=== PATIENT | female | born 2000 | race Caucasian/White ===

== ENCOUNTER 2023-07-20 22:31 | Emergency (ER) | payer MEDICAID, SELFPAY ==
--- NOTE | ~2023-07-20 | US_ITS ---
EXAMINATION: US OB <=14 wk fetus w TV DATE: 07/21/2023 02:13 INDICATION: Lower abdominal pain and cramping during first trimester . TECHNIQUE: Real-time pelvic ultrasound utilizing both a transvaginal and transabdominal probe was pe rformed. The interpreting radiologist was not present for the study. COMPARISON: None. FINDINGS: The uterus measures 8.1 x 4.5 x 4.6 cm. There is an intrauterine gestational sac with subtle interna l yolk sac but no discernible pole. The mean sac diameter measures 4 mm, which correlates with an estimated gestational age of 5 weeks and 1 days. The right ovary measures 4.1 x 1.8 x 4.7 cm. The left ovary measures 3.0 x 2.8 x 2.2 cm. Vascular lizzette w identified in both ovaries on color Doppler. There is a minimal amount of anechoic free fluid in th e cul-de-sac and along side the right ovary. IMPRESSION: 1. Single intrauterine gestational sac with yolk sac but no pole yet evident likely due to marian y stage of . 2. Gestational age by ultrasound based upon mean sac diameter of 5 weeks 1 day(s) +/- 3 day(s) with ultrasound estimated date of delivery (WILDER) of 03/21/2024. Reviewed, dictated and finalized at location A. IMPRESSION: 1. Single intrauterine gestational sac with yolk sac but no pole yet evid ent likely due to early stage of . 2. Gestational age by ultrasound based upon mean sac diameter of 5 weeks 1 day (s) +/- 3 day(s) with ultrasound estimated date of delivery (WILDER) of 03/21/2024 .
--- NOTE | ~2023-07-20 | XR_ITS ---
EXAMINATION: XR chest 1V portable DATE: 07/21/2023 05:09 INDICATION: Shortness of breath and fever TECHNIQUE: frontal view of the chest was obtained. COMPARISON: Chest radiograph dated 09/05/2007 FINDINGS: The lungs remain clear with no focal airspace opacities, pulmonary edema, pleural effusion or pneumot horax. The cardiomediastinal silhouette is normal. Visualized bones and soft tissues are unremarkable . IMPRESSION: 1. No acute cardiopulmonary disease. Reviewed, dictated and finalized at location A.
[2023-07-20 22:40] VITALS: BP 125/72; PULSE 127; RESP 16; TEMP 37; O2SAT 100
[2023-07-21] VITALS (27 sets, daily range): BP systolic 91–147; BP diastolic 39–108; PULSE 112–148; RESP 11–24; TEMP 38.8; O2SAT 97–100
[2023-07-21 00:30] LABS: Basophils Percent Auto 0.5 % (0.2-1.2); Hematocrit 39.4 % (37.0-47.0); Hemoglobin 13.3 g/dL (12.0-15.0); Immature Granulocyte Absolute 0.02 K/mm3 (0.00-0.031); Immature Granulocyte Percent A 0.5 % (0-0.5); Lymphocytes Absolute Auto 0.48 K/mm3 (0.9-3.2); Mean Corpuscular HGB Conc 33.8 g/dl (32-36); Mean Corpuscular Hemoglobin 25.8 pg (26-34); Mean Corpuscular Volume 76.5 fl (80-100); Mean Platelet Volume 10.6 fl (7.4-10.4); Monocytes Absolute Auto 0.9 K/mm3 (0.1-0.6); Monocytes Percent Auto 20.2 % (2.6-8.5); Neutrophils Percent Auto 67.8 % (45.5-73.1); Platelet Count Result 204 k/mm3 (150-375); Red Blood Count 5.15 M/mm3 (4.2-5.4); Red Cell Distribution Width 14.6 % (11.5-14.5); White Blood Count 4.4 K/mm3 (4.5-10.0)
[2023-07-21 00:35] LABS: Alanine Aminotransferase 19 U/L (6-35); Albumin Level 4.6 g/dL (3.5-5.1); Alkaline Phosphatase 73 U/L (38-126); Anion Gap 12 mmol/L (8-16); Aspartate Amino Transferase 31 U/L (14-36); Bilirubin,Total 0.5 mg/dL (0.2-1.3); Blood Urea Nitrogen 5 mg/dL (7-17); Calcium 9.6 mg/dL (8.4-10.2); Carbon Dioxide 19 mmol/L (22-30); Chloride 104 mmol/L (98-107); Estimated CRCL calculation 83 ml/min; Estimated Glomerular Filt Rate > 60; Glucose 106 mg/dL (65-110); Lipase 99 U/L (23-300); Potassium 3.4 mmol/L (3.4-5.0); Sodium 135 mmol/L (137-145)
--- NOTE | 2023-07-21 00:37 | ED.NAVMDI ---
HPI - Nausea/Vomiting/Diarrhea General Chief complaint: Nausea/Vomiting/Diarrhea <LEILA Tavares Last Filed: 07/21/23 14:08> Stated complaint: fever, N/V <LEILA Tavares Last Filed: 07/21/23 14:08> Time Seen by Provider: 07/21/23 00:20 <LEILA Tavares Last Filed: 07/21/23 14:08> Source: patient <LEILA Tavares Last Filed: 07/21/23 14:08> Mode of arrival: ambulatory <LEILA Tavares Last Filed: 07/21/23 14:08> Limitations: no limitations <LEILA Tavares Last Filed: 07/21/23 14:08> History of Present Illness HPI Narrative: Patient is a 22-year-old female who presents the ED with report of nausea and vomiting. Patient is and approximately 5 weeks gestation by last normal menstrual cycle around 06/13. Patient reports having persistent nausea and vomiting over the last 1.5 weeks. States she has been unable to keep down much food or drink. Reports decreased appetite. Reports intermittent lower abdominal cramping. Reports today she developed a fever up to 101.4 degree F, along with a cough. States overall she feels weak and fatigued. Patient able to denies vaginal bleeding, dysuria, hematuria. She is planning to follow up with [facility]. <LEILA Tavares Last Filed: 07/21/23 14:08> Related Data Allergies/Adverse reactions: Allergies Allergy/AdvReac Type Severity Reaction Status Date / Time No Known Allergies Allergy Unverified 03/16/17 12:44 <LEILA Tavares Last Filed: 07/21/23 14:08> Review of Systems Review of Systems: CONSTITUTIONAL: See HPI. CARDIOVASCULAR: Denies chest pain. RESPIRATORY: Reports cough. GASTROINTESTINAL: See HPI. GENITOURINARY: Denies vaginal bleeding, dysuria or hematuria. <LEILA Tavares Last Filed: 07/21/23 14:08> All systems reviewed & are unremarkable except as noted in HPI and below <Lucia Pagan PA-C - Last Filed: 07/21/23 14:08> Exam Narrative: GENERAL: Well appearing, well-nourished, non-toxic, in no acute distress. HEAD: Normocephalic, atraumatic. RESPIRATORY: Airway patent, respirations nonlabored. Clear to auscultation bilaterally, no rales, rhonchi, wheezing. CARDIOVASCULAR: Tachycardic with regular rhythm without murmurs, rubs, or gallops. ABDOMINAL: Soft, minimal tenderness to palpation throughout lower abdomen, nondistended. Normoactive BS. MUSCULOSKELETAL: Moves all extremities. No gross deformities. SKIN: Warm, dry, normal color. NEURO: A&O X3. Speech clear. Cranial nerves II-XII grossly intact. Steady gait. No ataxic movements. PSYCHIATRIC: Appropriate mood and affect. Normal interaction. <LEILA Tavares Last Filed: 07/21/23 14:08> Course COMPRESSOR STATION CHIEF ENGINEER/PA Physician Supervision For this patient encounter, I reviewed the COMPRESSOR STATION CHIEF ENGINEER or PA documentation, treatment plan, and medical decision making and had [id number] time with this patient. I performed all aspects of the MDM as documented. <Emmett Dallas MD - Last Filed: 07/21/23 06:33> Vital Signs Vital signs: Vital Signs Temperature 98.6 F 07/20/23 22:40 Pulse Rate 127 H 07/20/23 22:40 Respiratory Rate 16 07/20/23 22:40 Blood Pressure 125/72 07/20/23 22:40 Pulse Oximetry 100 07/20/23 22:40 Oxygen Delivery Room Air 07/20/23 22:40 Temperature 101.9 F H 07/21/23 04:36 Pulse Rate 116 H 07/21/23 06:31 Respiratory Rate 12 07/21/23 06:31 Blood Pressure 118/57 L 07/21/23 06:31 Pulse Oximetry 98 07/21/23 06:31 Oxygen Delivery Room Air 07/20/23 22:40 <Lucia Pagan PA-C - Last Filed: 07/21/23 14:08> Vital Signs Temperature 98.6 F 07/20/23 22:40 Pulse Rate 127 H 07/20/23 22:40 Respiratory Rate 16 07/20/23 22:40 Blood Pressure 125/72 07/20/23 22:40 Pulse Oximetry 100 07/20/23 22:40 Oxygen Delivery Room Air 07/20/23 22:40 Temperature
[2023-07-21 00:45] LABS: Appearance Urine Cloudy (Clear); Bacteria Urine 1+ /hpf; Bilirubin Urine Negative (Negative); Blood Urine Negative (Negative); Color Urine Dark Yellow (Yellow); Glucose Urine UA Negative (Negative); Ketones Urine 1+ mg/dL (Negative); Leukocyte Esterase Ur 1+ LEU/UL (Negative); Need Manual Microscopic Reviewed; Nitrate Urine Negative (Negative); Protein Urine Trace mg/dL (Negative); Specific Grav Ur 1.026 (1.001-1.035); Squamous Epithelial Cell Urine Moderate /hpf (Few); WBC Urine 0-5 /hpf (0-3)
[2023-07-21] MEDS: FAMOTIDINE 20 MG/2 ML VIAL IV PUSH (00:50)
[2023-07-21] MEDS: METOCLOPRAMIDE HCL INJ 10 MG/2 ML VIAL IV PUSH (00:50)
[2023-07-21] MEDS: SODIUM CHLORIDE 0.9% IV 1,000 ML 999 ML IV CONT ×2 (00:50→03:06)
[2023-07-21 00:57] LABS: Add Urine Microscopic? YES
[2023-07-21 01:18] LABS: Influenza A QL RT-PCR Negative (Negative); Influenza B QL RT-PCR Negative (Negative); RSV RNA, RT-PCR Negative (Negative); SARS-CoV-2 RNA PCR Negative (Negative)
--- NOTE | 2023-07-21 02:03 | PC.NURSE ---
Pt back from US.
--- NOTE | 2023-07-21 04:37 | ECG_ITS ---
Measurements Intervals [place] Rate: 140 P: 71 ME: 148 QRS: 87 QRSD: 101 T: 26 QT: 321 QTc: 490 Interpretive Statements SINUS TACHYCARDIA LOW QRS VOLTAGE IN PRECORDIAL LEADS INCOMPLETE RIGHT BUNDLE BRANCH BLOCK NONSPECIFIC ST & T-WAVE ABNORMALITY- INFERIOR LEADS BASELINE WANDER- II, III, V3-V6 ABNORMAL ECG NO PREVIOUS ECG AVAILABLE FOR COMPARISON Electronically Signed On 07-21-2023 7:58:19 CDT by Mango Mooney D.O.
[2023-07-21] MEDS: ACETAMINOPHEN ELIXIR 325 MG/10.15 ML UDC 650 MG PO (04:51)
[2023-07-21] MEDS: SODIUM CHLORIDE 0.9% IV 1,000 ML 150 ML IV CONT (05:23)
== END 2023-07-21 06:44 | disposition home or self-care (01) ==
PROVIDERS: Emergency Medicine; Physician Assistant; Emergency Provider Emergency Medicine
DX: O21.9 Vomiting of pregnancy, unspecified (principal); O99.511 Diseases of the respiratory system complicating pregnancy, first trimester; J06.9 Acute upper respiratory infection, unspecified; O26.891 Other specified pregnancy related conditions, first trimester; R82.71 Bacteriuria; Z3A.01 Less than 8 weeks gestation of pregnancy; R00.0 Tachycardia, unspecified; I45.10 Unspecified right bundle-branch block; R94.31 Abnormal electrocardiogram [ECG] [EKG]
CPT/HCPCS: 36415; 71045; 76801; 76817; 80053; 81025; 83690; 84702; 85025; 87086; 87637; 93005; 96361; 96374; 96375; 99284; A9270; J2765; J7030

== ENCOUNTER 2023-12-12 15:42 | Outpatient (CLI) | payer OTHER, SELFPAY ==
--- NOTE | 2023-12-12 16:32 | PC.NURSE ---
heart tones doppled at bedside. FHT 155 at 1605.
[2023-12-12 16:34] LABS: OBXCEM ROM Plus Negative
== END 2023-12-12 16:34 | disposition home or self-care (01) ==
LOC: ANHOBOP 15:53 → ANHOBPP 15:55
PROVIDERS: Visit Provider Advanced Practice Midwife
DX: O41.8X90 Other specified disorders of amniotic fluid and membranes, unspecified trimester, not applicable or unspecified (principal)
CPT/HCPCS: 84112; 99199

== ENCOUNTER 2024-01-20 00:58 | Observation (INO) | payer OTHER, SELFPAY ==
[2024-01-20] VITALS (20 sets, daily range): PULSE 92–129; O2SAT 98–100
--- NOTE | 2024-01-20 01:30 | OBADM ---
This patient, Dionne Arreaga, admitted to the OB room OB Post 117 for observation. Patient/family oriented to hospital policies and general routines including ID bracelet, bed and alarms, visiting hours, pain management, procedures, bathroom and other care routines, personal items, smoking policy, room service/diet, and visiting hours. Patient/Family are encouraged to report perceived risks to care and to ask questions if they do not understand what they are told or what they should do.
[2024-01-20 01:31] LABS: Basophils Percent Auto 0.4 % (0.2-1.2); Eosinophils Absolute Auto 0.1 K/mm3 (0-0.3); Eosinophils Percent Auto 1.3 % (0-4.4); Hematocrit 26.4 % (37.0-47.0); Hemoglobin 8.4 g/dL (12.0-15.0); Immature Granulocyte Absolute 0.08 K/mm3 (0.00-0.031); Lymphocytes Percent Auto 20.4 % (18.3-44.2); Mean Corpuscular HGB Conc 31.8 g/dl (32-36); Mean Corpuscular Hemoglobin 24.5 pg (26-34); Mean Platelet Volume 10.5 fl (7.4-10.4); Monocytes Absolute Auto 0.8 K/mm3 (0.1-0.6); Monocytes Percent Auto 9.8 % (2.6-8.5); Neutrophils Absolute Auto 5.3 K/mm3 (1.3-6.7); Neutrophils Percent Auto 67.1 % (45.5-73.1); Platelet Count Result 208 k/mm3 (150-375); Red Blood Count 3.43 M/mm3 (4.2-5.4); Red Cell Distribution Width 13.2 % (11.5-14.5); White Blood Count 7.8 K/mm3 (4.5-10.0)
--- NOTE | 2024-02-13 21:56 | PM.OBTRLD ---
OB - Triage/Final Diagnosis Visit Information Comments/Additional reasons for admission: I have assessed the risk for this patient, Dionne Arreaga, and determined that she would benefit from observation care. Evaluation Laboratory results: Laboratory Tests 01/20/24 01:14 WBC 7.8 RBC 3.43 L Hgb 8.4 L D Hct 26.4 L MCV 77.0 L MCH 24.5 L MCHC 31.8 L RDW 13.2 Plt Count 208 MPV 10.5 H Immature Gran % (Auto) 1.0 H Neut % (Auto) 67.1 Lymph % (Auto) 20.4 Labette % (Auto) 9.8 H Eos % (Auto) 1.3 Baso % (Auto) 0.4 Lymph # (Auto) 1.60 Labette # (Auto) 0.8 H Eos # (Auto) 0.1 Baso # (Auto) 0.0 Abs Immat Gran (auto) 0.08 H Absolute Neuts (auto) 5.3 Absolute Nucleated RBC 0.000 Nucleated RBC % 0.0 Final Diagnosis (1) Dyspnea: Code(s): R06.00 - Dyspnea, unspecified Status: Acute
== END 2024-01-20 03:32 | disposition home or self-care (01) ==
PROVIDERS: Admitting Provider Obstetrics & Gynecology; Visit Provider Obstetrics & Gynecology
DX: O26.893 Other specified pregnancy related conditions, third trimester (principal); R06.00 Dyspnea, unspecified; Z3A.30 30 weeks gestation of pregnancy
CPT/HCPCS: 36415; 85025; G0378; G0379

== ENCOUNTER 2024-03-18 18:31 | Inpatient (IN) | payer OTHER, SELFPAY ==
[2024-03-18] VITALS (55 sets, daily range): BP systolic 91–138; BP diastolic 46–89; PULSE 79–114; TEMP 37.2–37.4; O2SAT 98–100; BMI 31.2
[2024-03-18 19:10] LABS: Basophils Percent Auto 0.1 % (0.2-1.2); Eosinophils Percent Auto 0.4 % (0-4.4); Hematocrit 34.6 % (37.0-47.0); Hemoglobin 11.2 g/dL (12.0-15.0); Immature Granulocyte Absolute 0.05 K/mm3 (0.00-0.031); Immature Granulocyte Percent A 0.7 % (0-0.5); Lymphocytes Absolute Auto 1.37 K/mm3 (0.9-3.2); Mean Corpuscular HGB Conc 32.4 g/dl (32-36); Mean Corpuscular Volume 77.2 fl (80-100); Mean Platelet Volume 11.2 fl (7.4-10.4); Monocytes Percent Auto 13.2 % (2.6-8.5); Neutrophils Absolute Auto 4.8 K/mm3 (1.3-6.7); Neutrophils Percent Auto 66.6 % (45.5-73.1); Platelet Count Result 203 k/mm3 (150-375); Red Blood Count 4.48 M/mm3 (4.2-5.4); Red Cell Distribution Width 21.4 % (11.5-14.5); White Blood Count 7.2 K/mm3 (4.5-10.0)
[2024-03-18] MEDS: miSOPROStol 25 MCG TABLET 50 MCG BUCCAL (19:22)
[2024-03-18] MEDS: FAMOTIDINE 20 MG/2 ML VIAL IV PUSH (19:26)
[2024-03-18 19:36] LABS: Rapid Plasma Reagin Non-Reactive (NonReactive)
--- NOTE | 2024-03-18 19:51 | LDADM ---
This patient, Dionne Arreaga, was admitted to Labor/Delivery/Recovery 102 on 03/18/24 at 18:31. Plans for labor, pain management and were discussed with patient. Patient/family oriented to hospital policies and general routines including ID bracelet, bed and alarms, visiting hours, pain management, procedures, bathroom and other care routines, personal items, smoking policy, room service/diet and guest tray routines, infant security routines, and visiting hours. Patient/Family are encouraged to report perceived risks to care and to ask questions if they do not understand what they are told or what they should do. See OBIX for further documentation.
[2024-03-18 20:02] LABS: HIV 1/2 Ab P24 Ag Result Negative (Negative)
[2024-03-19] VITALS (174 sets, daily range): BP systolic 92–144; BP diastolic 37–104; PULSE 76–146; RESP 16–20; TEMP 36.4–37.3; O2SAT 97–100
[2024-03-19] MEDS: miSOPROStol 25 MCG TABLET 50 MCG BUCCAL ×2 (00:29→05:12)
[2024-03-19] MEDS: LACTATED RINGERS 500 ML 999 ML IV CONT (02:43)
--- NOTE | 2024-03-19 07:25 | WPDOBADMIT ---
Obstetrics - Admit Note Admission Note: record reviewed. No pertinent additions to the history and/or any subsequent changes in the physical findings that are not consistent with the expected course of the were found. Additions to the history and/or subsequent changes in the physical findings follow. IOL, elective, SVE 1.5 cm/80/-2, AROM large amount of clear, odorless fluid, anticipate vaginal delivery
[2024-03-19] MEDS: LACTATED RINGERS 1,000 ML 125 ML IV CONT (08:00)
[2024-03-19] MEDS: fentaNYL CITRATE INJ (*CRX) 100 MCG/2 ML VIAL 50 MCG IV PUSH (08:13)
[2024-03-19] MEDS: LORazepam (*CRX) 0.5 MG TABLET PO (10:22)
[2024-03-19] MEDS: OXYTOCIN 30 UNITS/NS 500 ML 30 UNITS/500 ML BAG IV CONT (11:43)
[2024-03-19] MEDS: FAMOTIDINE 20 MG/2 ML VIAL IV PUSH (13:12)
--- NOTE | 2024-03-19 15:10 | P.PCNOB_ITS ---
OB - Vaginal Delivery Note Procedure Delivery date: 03/19/24 Induction method: AROM, Per Misoprostol Protocol and Per Pitocin Protocol Route of delivery: Laceration Description: Perineal - 1st Degree Delivery repair: vicryl Specimen: No Quantitative Blood Loss (ml): 200 Anesthesia type: Epidural Disposition: Floor Complications: No immediate complications [place] Baby Date of : 03/19/24 Time of : 15:00 Gestational Age by Date: 39 Infant gender: Male presentation: vertex position: Left Occiput Anterior Placenta delivery description: Spontaneous Cord Vessel Description: 3 Vessels and Delayed Cord Clamping score one minute: 8 score five minutes: 9
[2024-03-19] MEDS: OXYTOCIN 30 UNITS/NS 500 ML 30 UNITS/500 ML BAG 125 UNITS IV CONT (15:29)
[2024-03-19] MEDS: IBUPROFEN 600 MG TABLET PO (16:56)
[2024-03-19] MEDS: WITCH HAZEL 40 PADS 1 PAD TOPICAL (16:56)
[2024-03-19] MEDS: BENZOCAINE 20% AER SPR (*SP) 56 GM CAN 1 SPRAY TOPICAL (16:56)
[2024-03-20] MEDS: IBUPROFEN 600 MG TABLET PO ×2 (04:30→10:16)
[2024-03-20] MEDS: ACETAMINOPHEN 325 MG TABLET 650 MG PO ×2 (04:30→10:16)
[2024-03-20 05:07] LABS: Hematocrit 33.9 % (37.0-47.0); Hemoglobin 10.9 g/dL (12.0-15.0)
--- NOTE | 2024-03-20 05:53 | PM.OBPNVD ---
OB - PN: Subj Subjective Date/time seen: 03/20/24 05:53 Interval history: pp day 1 doing well OB - PN: Obj Data Labs 03/20/24 03:59 Labs: Laboratory Results - last 24 hr 03/20/24 03:59 Hgb 10.9 L Hct 33.9 L OB - PN A/P Plan day: 1 Plan: routine care Time Spent With Patient Time: Total time spent is greater than 50% in coordination of care (as documented) at patient's floor/unit and/or counseling patient: Review of Systems Review of Systems: All systems reviewed & are unremarkable except as noted in HPI and below Exam Const: General: cooperative and healthy appearing Resp: Effort & Inspection: normal respiratory effort Cardio: Rate: regular rate Skin: General skin exam: normal color Neuro: General: patient oriented x3
[2024-03-20 07:10] VITALS: BP 112/72; PULSE 99; RESP 16; TEMP 36.2; O2SAT 99
[2024-03-20 07:15] VITALS: PULSE 99; RESP 16; O2SAT 99
--- NOTE | 2024-03-20 08:13 | PM.OBPNVD ---
OB - PN: Subj Subjective Date/time seen: 03/20/24 08:13 Interval history: pp day 1 doing well Patient comments: no complaints, pain well controlled and tolerating diet OB - PN: Obj Data Labs 03/20/24 03:59 Labs: Laboratory Results - last 24 hr 03/20/24 03:59 Hgb 10.9 L Hct 33.9 L OB - PN A/P Plan day: 2 Plan: routine care and discharge home Time Spent With Patient Time: Total time spent is greater than 50% in coordination of care (as documented) at patient's floor/unit and/or counseling patient: Exam Const: General: comfortable and no acute distress Resp: Effort & Inspection: normal respiratory effort Auscultation: no rales, no rhonchi and no wheezes Cardio: Rate: regular rate Heart sounds: no click, no murmurs and no rubs GI: GI Palp: Yes Soft to palpation and No Tenderness to palpation present (GI) Auscultation: normal bowel sounds Extrem: General: normal to inspection, no pedal edema and no calf tenderness
--- NOTE | 2024-03-20 08:16 | PM.OBDSVD ---
DS: Admitting Diagnosis Discharge Date March 20, 2024 Admitting Diagnosis term DS: Discharge Diagnosis Discharge Diagnosis (1) Post term , delivered: Code(s): O48.0 - Post-term Status: Acute OB - DS: Summary OB Procedures : None OB Procedures Intrapartum: Spontaneous Vag Delivery OB Procedures: : None Peripartum Data Laceration Description: Perineal - 1st Degree Time Spent with Patient Time attestation: Total time spent providing and/or coordinating discharge services: DS: Data Data Completed and Pending Labs on day of discharge: Labs from last 24 hours 03/20/24 03:59 Hgb 10.9 L Hct 33.9 L Discharge Plan Discharge Discharging Clinician: Gus Chun Patient Disposition: Home, Self-Care Activity: pelvic rest Diet: regular Patient Instructions: Antibiotic Form Stand Alone Forms: General Discharge Information Follow-up/Referrals: Gus Chun MD [Physician] - Discharge Medications: Continued mirtazapine 15 mg Tablet 15 mg PO HS Vitamin Tablet 1 tablet PO DAILY Date of admission: 03/18/24 18:31 Primary Care Provider: UNKNOWN,DOCTOR Admitting Provider: Gus Chun Attending physician on admission: Gus Chun Condition: Stable
[2024-03-20] MEDS: DOCUSATE SODIUM 100 MG CAPSULE PO (10:16)
[2024-03-20] MEDS: MULTIVIT/MIN/PREN/FOL AC/IRON TABLET 1 TAB PO (10:16)
[2024-03-20 12:36] VITALS: BP 115/70; PULSE 80; RESP 16; TEMP 36.6; O2SAT 100
--- NOTE | 2024-03-20 13:41 | WPDANLDPN2 ---
Anes-Prog Note L&D Date/Time: 03/20/24 13:41 Comfortable throughout: labor and delivery Neuraxial method: epidural Epidural/Spinal procedure site: clean & non-tender Neuro status: Neuro function grossly intact. Cardiovascular status: normal Respiratory status: normal Airway patency: baseline Mental status: baseline Post-Op hydration status: normal Vital Signs: Last Vital Signs Temp 36.6 C 03/20/24 12:36 Pulse 80 03/20/24 12:36 Resp 16 03/20/24 12:36 BP 115/70 03/20/24 12:36 Pulse Ox 100 03/20/24 12:36 O2 Del Method Room Air 03/20/24 07:15 Pain score (VAS): 3/10 Post-procedural complaints: none Patient feedback: Patient satisfied with anesthetic care.
[2024-03-20 18:25] VITALS: BP 124/82; PULSE 82; RESP 18; TEMP 36.4; O2SAT 97
[2024-03-21] MEDS: MULTIVIT/MIN/PREN/FOL AC/IRON TABLET 1 TAB PO (07:32)
[2024-03-21] MEDS: DOCUSATE SODIUM 100 MG CAPSULE PO (07:32)
[2024-03-21 07:36] VITALS: BP 127/85; PULSE 93; RESP 21; TEMP 36.2; O2SAT 97
--- NOTE | 2024-03-21 07:46 | PM.OBPNVD ---
OB - PN: Subj Subjective Date/time seen: 03/21/24 07:46 Interval history: pp day 2 doing well bottle feeding desires d/c home OB - PN: Obj Data Labs 03/20/24 03:59 OB - PN A/P Plan day: 2 Plan: routine care and discharge home Time Spent With Patient Time: Total time spent is greater than 50% in coordination of care (as documented) at patient's floor/unit and/or counseling patient: Review of Systems Review of Systems: All systems reviewed & are unremarkable except as noted in HPI and below Exam Const: General: cooperative, healthy appearing and comfortable Chest: Chest palpation & inspection: normal inspection of the chest Cardio: Rate: regular rate Skin: General skin exam: normal color Neuro: General: patient oriented x3
--- NOTE | 2024-03-21 07:47 | PM.OBDSVD ---
DS: Admitting Diagnosis Discharge Date 03/21/24 Admitting Diagnosis IOL DS: Discharge Diagnosis Discharge Diagnosis (1) Vaginal delivery: Code(s): O80 - Encounter for full-term uncomplicated delivery Status: Acute OB - DS: Summary OB Procedures : None OB Procedures Intrapartum: Spontaneous Vag Delivery OB Procedures: : None Peripartum Data Laceration Description: Perineal - 1st Degree Time Spent with Patient Time attestation: Total time spent providing and/or coordinating discharge services: Discharge Plan Discharge Attending physician on discharge: Gus Chun Discharging Clinician: Maryam Sam Patient Disposition: Home, Self-Care Activity: pelvic rest Diet: regular Patient Instructions: Antibiotic Form Stand Alone Forms: General Discharge Information Follow-up/Referrals: Gus Chun MD [Physician] - Discharge Medications: Continued mirtazapine 15 mg Tablet 15 mg PO HS Vitamin Tablet 1 tablet PO DAILY Date of admission: 03/18/24 18:31 Primary Care Provider: UNKNOWN,DOCTOR Admitting Provider: Gus Chun Attending physician on admission: Gus Chun Condition: Stable
--- NOTE | 2024-03-21 08:00 | PC.NURSE ---
0800 Per Primary RN, mother is not wanting to breast feed or use breast pump, she wishes to only bottle feed formula.
== END 2024-03-21 10:48 | disposition home or self-care (01) | DRG 560 ==
LOC: ANHLDR 18:36 → ANHOB2 03-19 18:23
PROVIDERS: Admitting Provider Obstetrics & Gynecology; Referring Provider Advanced Practice Midwife; Visit Provider Obstetrics & Gynecology
DX: O71.4 Obstetric high vaginal laceration alone (principal); Z3A.39 39 weeks gestation of pregnancy; Z37.0 Single live birth
CPT/HCPCS: 36415; 85014; 85018; 85025; 86592; 86703; 86850; 86900; 86901; A9270; G0432; J2590; J2795; J3010; J7120

== ENCOUNTER 2024-06-06 09:45 | Outpatient (RCR) | payer OTHER, SELFPAY ==
--- NOTE | 2024-05-16 11:53 | OPREHPOC ---
Outpatient Therapy Plan of Care This is a Multidisciplinary Plan of Care that may contain components documented by all disciplines (PT, OT, and ST.) PT Problem 1 PT Problem #1 Knowledge Deficit PT Goal 1 Goal / Goal Update 1. Patient will perform independent HEP Target Visit 3 PT Problem 2 PT Problem #2 Pain PT Goal 1 Goal / Goal Update 1. Patient will report pain no higher than 1/10 with normal activities including lifting her baby Target Visit 5 PT Problem 3 PT Problem #3 Impaired Strength PT Goal 1 Goal / Goal Update 1. Improve pelvic floor strength to 4/5 to reduce incontinence 2. Improve pelvic floor endurance to 10 seconds to reduce incontinence Target Visit 5 PT Problem 4 PT Problem #4 Impaired Functional ADLs PT Goal 1 Goal / Goal Update 1. Patient will report incontinence no more than 1 time a month Target Visit 5
--- NOTE | 2024-05-16 11:53 | PTOPEVAL1 ---
Assessment and note entered by Gayla Ervin DPT Evaluation Information Assessment Status Evaluation ICD-10 Condition Codes (PT) Weakness R53.1,Pelvic and perineal pain R10.2, Stress incontinence N39.3 Subjective Information Pt reports pelvic pain and is 2 months . Started noticing the pain about a month ago. Highest pain 6/10 and lowest 0/10. Will notice pain with sitting up and leaning forward like to continuous pickling line pickler helper baby from the bassinet, or with standing up from a chair. Voids about 10 times a day, will sometimes wake up 1 time at night. Can hold urge to void up to 15 minutes. Denies pain with urination. Urinary incontinence with activity 3-4 times a week, small volume and sometimes will need to change her underwear. BM most days, denies pain but does get some vaginal pressure. No fecal incontinence. Pt has had 1 vaginal delivery, slight tear and received 1 stitch. Previous PCOS diagnosis and history of anxiety. Some previous pain with intercourse, has not tried tampon use or intercourse since delivery. Patient goal: get rid of the pain Returns to MD in 1 year. Reported Pain Level Pain Score 0: Self Report Assessment PT Clinical Summary The patient is presenting to skilled therapy at 2 months with pelvic pain as well as urinary incontinence. She presents with decreased pelvic floor strength and endurance, decreased hip and abdominal strength, and a mild diastasis recti. These impairments are contributing to her pain with activities like picking up her baby from the bassinet and her incontinence. She will highly benefit from therapy to reduce pain and incontinence and restore full function. Plan of Care Interventions Electrical Stimulation,Hot Pack/Cold Pack,Manual Therapy,Neuro Re-education,Patient/Caregiver Education,Therapeutic Activities,Therapeutic Exercise PT Services Indicated Yes Treatment Frequency and 1 time a week for 5 visits Duration These treatments will address the objective and functional deficits as defined above. The patient will be advanced safely and appropriately in order for the patient to progress towards his/her prior level of function. Additional exercises will be introduced and as well as a comprehensive home exercise program upon discharge, if needed, ?to ensure carryover of functional gains achieved in the clinic. This treatment plan has been reviewed and agreement upon by the patient.
--- NOTE | 2024-05-30 10:24 | PCPTNOTE ---
Patient was no call/no show for appointment 05/30/24.
--- NOTE | 2024-06-13 09:49 | PCPTNOTE ---
Patient did not show up for appointment 06/13/24. Called patient to offer times to reschedule but voicemail not set up.
--- NOTE | 2024-06-27 10:58 | PTOPDC ---
Assessment and note entered by Gayla Ervin DPLeoncio Evaluation Information Assessment Status Discharge - Pt Not Present ICD-10 Condition Codes (PT) Weakness R53.1,Pelvic and perineal pain R10.2, Stress incontinence N39.3 Subjective Information - Assessment PT Clinical Summary Pt has not attended therapy since 06/06/24. Her case will be discharged this date. Plan of Care PT Services Indicated No
== END 2024-06-27 15:56 | disposition home or self-care (01) ==
LOC: ANHPT 09:45
PROVIDERS: Visit Provider Advanced Practice Midwife
DX: R10.2 Pelvic and perineal pain (principal)
CPT/HCPCS: 97110; 97112; 97140; 97161; 97530

== ENCOUNTER 2024-11-28 04:23 | Emergency (ER) | payer OTHER, SELFPAY ==
[2024-11-28] VITALS (19 sets, daily range): BP systolic 110–135; BP diastolic 60–82; PULSE 111–130; RESP 11–21; TEMP 37.5; O2SAT 97–100
--- OUTSIDE RECORDS SUMMARY | 2024-11-28 04:25 | XMS_ITS | Data Portability ---
Author Organization [facility], [facility] (patients home) Address [address] [place] [address] Assessment Encounter Date Assessment Date Assessment LastModified by Organization Details LastModified Time 12/18/2023 12/18/2023 Met with Dionne for follow up on mdd and anxiety, and how she is doing with remeron. GAD7-9 EPDS-16 total time 32 minutes. reviewing chart, meeting with patient [id number], sending out rx and documentation [email or web address] Not available 12/18/2023 13:08:35 01/08/2024 01/08/2024 Follow up with MDD and Anxiety PHQ9=12 GAD7=10 Not available 01/08/2024 19:36:49 03/12/2024 03/12/2024 Met with Dionne to follow up on depression/anxie ty EPDS 8 GAD7=3 [email or web address] Not available 03/12/2024 11:34:02 04/07/2024 04/07/2024 Met with Dionne today by telehealth to follow-up on her depression and anxiety since the of her baby. KELLY-7 = 7 mild EPDS = 8 [email or web address] Not available 04/07/2024 13:18:37 05/26/2024 05/26/2024 Met with Dionne today to follow up on her depression/anxie ty EPDS 7 GAD7=4 Not available 05/26/2024 13:37:09 Plan of Treatment Reminders Order Date Submit Date Provider Last Modified By Organization Details Last Modified Time Details Appointments None recorded. Lab None recorded. Referral None recorded. Procedures None recorded. Surgeries None recorded. Imaging None recorded. Medication Orders Lexapro 10 mg tablet 2024 025 [facility], [address], [place], [place], [id number], 5 13:29:13 Remeron 15 mg tablet 2023 024 [facility], [address], [place], [place], [id number], 4 13:24:17 Zoloft 25 mg tablet 2023 025 [facility], [address], [place], [place], [id number], 5 12:28:01 hydroxyzine HCl 25 mg tablet 2023 024 [facility], [address], [place], [place], [id number], 4 13:24:15 Remeron 15 mg tablet 2023 024 [facility], [address], [place], [place], [id number], 4 19:39:07 hydroxyzine HCl 25 mg tablet 2023 024 [facility], [address], [place], [place], [id number], 4 19:39:08 buspirone 5 mg tablet 2023 025 [facility], [address], [place], [place], [id number], 5 12:28:03 Patient TargetsNo targets recorded. Patient Instructions Encounter Date Encounter Id Patient Instructions Last Modified By Organization Details Last Modified Time 12/18/2023 [id number] learning about depression during [email or web address] Not available 12/18/2023 13:00:32 04/07/2024 [id number] depression after childbirth: care instructions [email or web address] Not available 04/07/2024 13:23:17 stress in parent s of infants: care instructions [email or web address] Not available 04/07/2024 13:23:18 Reason for Referral None Reported. Problems Name Problem SNOMED Code Status Onset Date Resolution Date Notes Provider Name and Address Organization Details Recorded Time Anxiety 73260982 Active 2023 Danisha Hughes CNM, [facility]- [address], [place], [address] 12:18:50 Moderate recurrent major depression 40582350 Active 2023 Danisha Hughes CNM, [facility] [address], [place], [address] 12:19:13 Generalize d anxiety disorder 44913795 Active 2023 Danisha Hughes CNM, [facility]- [address], [place], [address] 19:32:23 depression 390654938854 09 Active 2023 Danisha Hughes CNM, [facility] [address], [place], [address], [facility] 4 11:31:59 depression 90453699 Active 2023 Danisha Hughes CNM, [facility] [address], [place], [address] 18:51:32 Problem Notes None recorded. Procedures Surgical History Date Name Laterality Status Provider Name and Address Organization Details Recorded Time laparoscopy completed Ashley Sotelo [facility] I [facility] 12/05/2023 10:50:05 Imaging Results None recorded. Procedure Notes None recorded. Medical Equipment None Reported. Allergies Allergen ID Allergen Name Allergen Category Reaction Reaction Severity Criticality Documentation Date Start Date Code Code System Note Provider Name and Address Organization Details Recorded Time 942 Reglan medicatio n Not available Not available Not available 12/05/2023 9230 RxNorm Ashley Sotelo [place], [place] - [facility] 10:42:01 Medications Name Sig Start Date Stop Date Status Note LastModified by Organization Details LastModified Time dicloxacilli n 500 mg capsule 05/26 completed Not Available Not Available Not Available buspirone 5 mg tablet Take 1 tablet twice a day by oral route. 05/26 completed Not Available Not Available Not Available clindamycin HCl 300 mg capsule active Not Available Not Available Not Available fluconazole 150 mg tablet 05/26 completed Not Available Not Available Not Available metronidazol e 0.75 % (37.5 mg/5 gram) vaginal gel 05/26 completed Not Available Not Available Not Available metronidazol e 500 mg tablet 05/26 completed Not Available Not Available Not Available lorazepam 0.5 mg tablet active Not Available Not Available Not Available sertraline 25 mg tablet Take 1 tablet every day by oral route. 05/26 completed Not Available Not Available Not Available hydroxyzine HCl 25 mg tablet Take 1 tablet 3 times a day by oral route as needed, for anxiety and sleep. active Not Available Not Available No t Available mirtazapine 15 mg tablet Take 1 tablet every day by oral route. active Not Available Not Available No t Available escitalopram 20 mg tablet Take 1 tablet every day by oral route. active Not Available Not Available No t Available Lexapro 10 mg tablet Take 1 tablet every day by oral route. 2024 active Not Available Not Available Not Avai lable escitalopram 5 mg tablet Take 1 tablet every day by oral route. 05/26 completed Not Available Not Available Not Available nitrofuranto in monohydrate/ macrocrystal s 100 mg capsule TAKE 1 CAPSULE BY MOUTH EVERY 12 HOURS WITH FOOD/NAHOMY L 12/04 completed Not Available Not Available Not Available Ativan active Not Available Not Availa ble Not Available clonazepam active Not Available Not Av ailable Not Available Vitals Date Recorded Body height Body mass index (BMI) Body weight Heart rate Systolic And Diastolic Provider Name and Address Organization Details Last Updated DateTime 05/26/2024 154.94 cm 28.5 kg/m2 47683.45 g 75 /min 129/89 mm[Hg] Ashley Sotelo [facility] 05/26/2024 12:26:36 Date Recorded Body height Body mass index (BMI) Body weight Systolic And Diastolic Provider Name and Address Organization Details Last Updated DateTime 12/18/2023 154.94 cm 24.8 kg/m2 22148.6 g 114/74 mm[Hg] Ashley Sotelo [facility] 12/18/2023 11:30:22 Date Recorded Body height Body mass index (BMI) Body weight Systolic And Diastolic Provider Name and Address Organization Details Last Updated DateTime 01/08/2024 154.94 cm 26.3 kg/m2 01492.34 g 114/77 mm[Hg] Ashley [facility] 01/08/2024 15:57:24 Date Recorded Body height Body mass index (BMI) Body weight Systolic And Diastolic Provider Name and Address Organization Details Last Updated DateTime 03/12/2024 154.94 cm 31.6 kg/m2 25967.93 g 124/84 mm[Hg] Ashley [facility] 03/12/2024 10:43:09 Social History Question Answer Notes LastModified by Organizat ion Details LastModified Time Tobacco Smoking Status Never Smoker Ashley Sotelo [facility] 12/05/2023 10:48:36 What Is Your Level Of Caffeine Consumption? Occasional [email or web address] Information not available 12/05/2023 Which Illicit Or Recreational Drugs Have You Used? MJ [email or web address] Information not available 12/05/2023 Are There Any Guns Present In Your Home? No [email or web address] Information not available 12/05/2023 Do You Feel Safe In Your Home? Yes [email or web address] Information not available 12/05/2023 Sex: Unknown Functional Status Question Answer Note LastModified by Organizat ion Details LastModified Time Do you use any illicit or recreational drugs? Yes Information not available 12/05/2023 Do you or have you ever used any other forms of tobacco or nicotine? No [email or web address] Information not available 12/05/2023 What is your level of alcohol consumption? None [email or web address] Information not available 12/05/2023 What is your exercise level? None [email or web address] Information not available 12/05/2023 Mental Status Question Answer Note LastModified by Organization D etails LastModified Time Do you feel stressed (tense, restless, nervous, or anxious, or unable to sleep at night)? [id number] [email or web address] Information not available 12/05/2023 Family History Relationship Description Onset Age of this Age Resolved Age Notes LastModified by Organization Details LastModified Time Father Depressive disorder Not available 2023 10:45:29 Father Anxiety disorder [email or web address] Not available 2023 10:45:43 Maternal Grandfather Schizophreni a [email or web address] Not available 2023 10:45:52 Mother Depressive disorder [email or web address] Not available 2023 10:46:08 Mother Anxiety disorder Not available 2023 10:46:17 Medical History Condition Response Anxiety Disorder Y Other Y Depression Y Gynecological History Statement/Question Response Menses Monthly N HPV Vaccine Y Current Control Method None Date of LMP 06/15/2023 Obstetrics History GPAL:G 1 P 1 0 0 0 Type Value Full Term 1 Total 1 Past Encounters Encounter ID Performer Location Encounter Start Date Encounter Closed Date Diagnosis/Indication Diagnosis SNOMED-CT Code Diagnosis ICD10 Code Diagnosis Note [id number] Danisha Hughes CNM, [facility] Main Office [address] [place] [address] 12/05/2023 10:37:02 12/05/2023 17:25:37 Anxiety 11203438 F41.1 stop Lexapro. Start remeron 15mg daily.refe ral for therapy with Ce alhlin givenretur n to office 1 week for follow jayleen quiroz plan of care with Tiago stover with plan of care Moderate r ecurrent major depression 87176431 F33.1 stop Lexapro. Start remeron 15mg dailyrefer al for therapy with Ce Ahlin givenretur n to office 1 week for follow-up [id number] Danisha Hughes CNM, [facility] Main Office [address] [place] [address] 12/18/2023 11:26:53 12/18/2023 13:26:22 Moderate recurrent major depression 85985205 F33.1 stop Lexapro. Start remeron 15mg dailyrefer al for therapy with Ce Ahlin givenretur n to office 1 week for follow-up Moderate r ecurrent major depression 37649731 F33.1 continue Remeron 15mg dailyencou raged therapy-re feral given last visit for Ce Ahlinretur n to office 2 week for follow-up Anxiety 35648154 F41.1 continue remeron 15mg dailystart Buspar 5mg twice a day. may take mid-day dose if neededretu rn to office 2 week for follow up [id number] Danisha Hughes CNM, [facility] Main Office [address] [place] [address] 01/08/2024 15:54:39 01/09/2024 12:36:11 Moderate recurrent major depression 43522788 F33.1 Continue remeron 15mg dailyrefer al for therapy with Ce Ahlin given - encouraged return to office 2 months Anxiety 52886305 F41.1 continue remeron 15mg dailyhydro xyzine 12.5mg (1/2 tab)- 25mg (1 tab) as needed upto 3 times a day for anxiety, may also help with sleepretur n to office 2 months for follow up [id number] Danisha Hughes CNM, [facility] Main Office [address] [place] [address] 03/12/2024 10:39:28 03/12/2024 18:01:32 Anxiety 63043285 F41.1 continue remeron 15mg dailyhydro xyzine 12.5mg (1/2 tab)- 25mg (1 tab) as needed upto 3 times a day for anxiety, may also help with sleepretur n to office at 2 weeks - appt scheduled. depression 049 6801636 2106 F32.89 Continue remeron 15mg dailyrefer al for therapy with Ce Ahlin given - encouraged return to office 2 weeks - sooner if neededdisc ussed improtance of getting sleep after baby gets hare, using family members to help so she can get appropriat e rest. [id number] Danisha Hughes CNM, [facility] Main Office [address] [facility] [place] [address] 04/07/2024 12:09:08 04/08/2024 10:49:20 depression 18406079 F53.0 Continue Remeron 15 mg at at bedtimeSta rt sertraline 25 mg at bedtimeRec ommend therapy with CE Ahlin Anxiety 65033184 F41.1 continue remeron 15mg dailyhydro xyzine 12.5mg (1/2 tab)- 25mg (1 tab) as needed upto 3 times a day for anxiety, may also help with sleepretur n to office in 1 month - appt scheduled. [id number] Danisha Hughes CNM, [facility] Main Office [address] [facility] [place] [address] 05/26/2024 12:23:55 05/27/2024 09:41:04 depression 89589851 F53.0 Continue Remeron 15 mg at at bedtimeinc rease lexapro to 10mg dailyencou rage therapy with CE Ahlin Anxiety 51839500 F41.1 continue remeron 15mg dailyhydro xyzine 12.5mg (1/2 tab)- 25mg (1 tab) as needed upto 3 times a day for anxiety, may also help with sleepincre ase lexapro to 10 mg dailyretur n to office in 1 month - appt scheduled. depression 611 9891091 2109 F32.89 Continue remeron 15mg dailyrefer al for therapy with Ce Ahlin given - encouraged return to office 4 weeks Health Concerns Section Related Observation LastModified by Organization Detai ls LastModified Time None Recorded Concern Status LastModified by Organization Details LastModified Time None Recorded Advance Directives Directive None Recorded Payers Insurance Date Sequence Insurance Name Policy Number Policy Mendez Covered Member ID Mendez Member ID Guarantor Name 06/20/2024 1 [facility] ON OR AFTER 11/04/20 (MEDICAID REPLACEMENT - HMO) Dionne Arreaga [id number] Dionne Arreaga 03/10/2024 1 [place] [employer] Dionne Arreaga [id number] Dionne Arreaga 03/10/2024 1 [facility] - DOS ON OR AFTER 20 (MEDICAID REPLACEMENT - HMO) Dionne Arreaga [id number] Dionne Arreaga Notes Date Note Type Note Provider Name and Address Organization Details Recorded Time 12/18/2023 text/html Met with Dionne for follow-up with depression and anxiety. 26 weeks . Dionne is doing much better since switching from Lexapro to Remeron. Was experiencing some crazy dreams when she started the Remeron, but that is improved. States her mood to be better still having some anxiety. . denies feelings of worthlessness, helplessness, guilt. Feelings of hopelessness have improved. Appetite is improving. Sleep is better sleeping 10 to 11 hours a night. No difficulty falling asleep or staying asleep. Denies any SI or HI. Denies any auditory hallucinations or visual hallucinations. Danisha Hughes CNM, HNP-BC [address], [place], [address], [facility] 12/18/2023 13:25:56 01/08/2024 text/html Met with Dionne to follow-up on her MDD and anxiety. Dionne is 29 weeks , is doing well. Dionne is doing well on Remeron 15 mg daily. Stop taking BuSpar due to making her feel queasy. She states her mood to be okay. Denies any feelings of worthlessness, hopelessness, helplessness. Sleep is better, no difficulty falling asleep or staying asleep. Denies any SI or HI. Denies any auditory hallucinations or visual hallucinations. Danisha Hughes CNM, PMHNP-BC [address], [place], [address], [facility] 01/08/2024 19:43:09 03/12/2024 text/html Met with Dionne this am. Dionne is 38 weeks . schedued for induction of labor next sunday. Anxious about being induced. States her mood to be fine, anxious about having baby. Denies any feeling of worthlessness, helplessness or hopelessness. Appetite is good. Sleep is better, no problem, falling asleep or staying asleep. getting 10 hours of sleep a night. denies any SI or Hi. Denies any AH or VH. Danisha Hughes CNM, [facility]- [address], [place], [address], [facility] 03/12/2024 11:44:55 04/07/2024 text/html Met with Dionne today by telehealth. Dionne is following up after the of her son, Joey Finney. Sharath is 3 weeks old. Dionne states her process was good, delivered vaginally. Baby is bottlefeeding. Bonding well. Dionne does state her mood to be so overwhelmed and stressed out. States Sharath has been fussy the last few days. Denies any feelings of worthlessness, hopelessness, or helplessness. Anxiety just is very high. Appetite is good. Sleep is decent, I have lots of help. Getting 7 hours of sleep at night does nap during the day. Denies any SI or HI. Denies any auditory hallucinations or visual hallucinations. The states have been on Zoloft and Remeron in the past and are doing well with the combination. Danisha Hughes CNM, [facility]- [address], [place], [address], [facility] 04/07/2024 13:35:23 05/26/2024 text/html Met with Dionne today to follow-up on her depression and anxiety. She is 12 weeks . Bonding well with baby. Bottle feeding. States she is feeling good. Feeling like the Lexapro is helping. Denies feelings of worthlessness, hopelessness, or helplessness. Denies isolating or self. Sleep has been okay, getting up with the baby 2-3 times a night. Getting a total of 9 hours of sleep at night. Denies any SI or HI. Denies any auditory hallucinations or visual hallucinations. Has not started therapy. Interested in increasing her Lexapro to 10 mg, due to still having some increased anxiety at times. [facility] [address], [place], [address], [place] [facility] 05/26/2024 13:42:39 OBGyn Episode No OBEpisode recorded.
--- OUTSIDE RECORDS SUMMARY | 2024-11-28 04:25 | XMS_ITS | Clinical Summary ---
Author Organization [facility] Address [address] [address] Care Team Providers Care Social Sciences Chair Name Role Phone Deepak Jarquin MD Primary Care Provider [phone] Source Comments [facility],non-owned Affiliates and Associated Physician Practices is amultiple site organization consisting of ambulatory clinics and hospital sitesin [place], [place], [place] and [place]. This disclosure is being madepursuant to the Care Everywhere program and may not contain all information available regarding this patient. Last updated 18.[facility] wutabout Allergies No known active allergies Medications * Be aware that medications may not be up to date on this document. Alwaysverify current medications with the patient. ondansetron, disintegrating, (ZOFRAN ODT) 4 MG tablet Take 1 (one) tablet by mouth every 6 hours as needed for Nausea/Vomiti ng Allow tablet to dissolve on the tongue 12 tablet 06/06/2021 Active Social History Tobacco Use Types Packs/Day Years Used Date Smoking Tobacco: Never Passive Smoke Exposure: Yes Smokeless Tobacco: Never Tobacco Cessation:Counseling Given: Not Answered Alcohol Use Standard Drinks/Week Comments No 0 (1 standard drink = 0.6 oz pur e alcohol) AUDIT-C Answer Date Recorded Q1: How often do you have a drink containing alcohol? Never 10/24/2022 Q2: How many drinks containi ng alcohol do you have on a typical day when you are drinking? Patient does not drink Q3: How often do you have si x or more drinks on one occasion? Never 10/24/2022 Comments No Sex and Gender Information Value Date Recorded Sex Assigned at Not on file Legal Sex Female 6:36 AM [employer] Gender Identity Not on file Sexual Orientation Not on file Last Filed Vital Signs Vital Sign Reading Time Taken Comments Blood Pressure 132/84 10/24/2022 4:20 PM CDT Pulse 88 10/24/2022 4:20 PM CDT Temperature 36.3 C (97.3 F) 10/24/2022 4:20 PM CDT Respiratory Rate 16 10/24/2022 4:20 PM CDT Oxygen Saturation 100% 10/24/2022 4:20 PM CDT Inhaled Oxygen Concentration - - Weight 56.1 kg (123 lb 10.9 oz) 10/24/2022 4:20 PM CDT Height 156 cm (5' 1.42) 10/24/2022 4:20 PM CDT Body Mass Index 23.05 10/24/2022 4:20 PM CDT Plan of Treatment Health Maintenance Due Date Last Done Comments HIV SCREENING 2016 HPV VACCINE (1 - 3-dose series) 2016 MENINGOCOCCAL (Group B) VACC INE SHARED DECISION-MAKING (1 of 2 - Standard) 2017 HEPATITIS C SCREENING 07/19/2019 DTAP/TDAP/TD VACCINES (1 - Tdap) 2020 HEPATITIS B VACCINE (1 of 3 - 19+ 3-dose series) 2020 CHLAMYDIA/GONORRHEA SCREENING 10/31/2020 11/01/2019 PAP SMEAR 2022 COVID-19 VACCINE (1 - 2023-2 5 season) 2024 DEPRESSION SCREENING 05/07/2024 INFLUENZA VACCINE (#1) 2025 ZOSTER VACCINE (1 of 2) 07/24/2051 HIB VACCINE Aged Out No longer eligi ble based on patient's age to complete this topic MENINGOCOCCAL GROUPS A/C/Y/W VACCINE Aged Out No longer eligible b ased on patient's age to complete this topic PNEUMOCOCCAL VACCINE Aged Out No long er eligible based on patient's age to complete this topic Procedures Procedure Name Priority Date/Time Associated Diagnosis Comments CHLAMYDIA + GC AMPLIFIED PROBE STAT 11/01/2019 8:54 PM CDT from Last 3 Months or Most Recently Relevant to Health Maintenance Results * CHLAMYDIA + GC AMPLIFIED PROBE (STL) (11/01/2019 8:54 PM CDT) Chlamydia Amplified Probe Negative Negative 11/02/2019 11:13 AM CDT [facility] GC Amplified Probe Negative Negative 11/02/2019 11:13 AM CDT [facility] Microbiology URINE / Unknown Collection / Unknown 11/01/2019 8:54 PM CDT 11/01/2019 9:08 PM CDT Narrative [facility] - 11/02/2019 11:13 AM CDT Results based on detection/no detection of ribosomal RNA by amplified method. Rafael Cummings MD LAB - MICROBIOLOGY ORDERABLES Fi nal Result [facility] [address] [place] [address], [facility] [phone] from Last 3 Months or Most Recently Relevant to Health Maintenance Insurance [facility] Care Teams Social Sciences Chair Relationship Specialty [place] [address] [place] [phone] PCP - General Internal Medicine 05/07/21
--- OUTSIDE RECORDS SUMMARY | 2024-11-28 04:26 | XMS_ITS | Data Portability ---
Author Organization [facility] Address [address] [place] [address] Care Team Providers Care Reimbursement Liaison Name Role Phone BAMBI SAM Primary Care Provider [phone] Assessment Encounter Date Assessment Date Assessment LastModified by Organization Details LastModified Time 02/27/2024 02/27/2024 Patient is _36__weeks . Discussed plan. [email or web address] Not available 02/27/2024 14:03:20 03/07/2024 03/07/2024 Patient is _37__weeks . Discussed plan. [email or web address] Not available 03/07/2024 10:15:01 03/12/2024 03/12/2024 Patient is _38__weeks . Discussed plan. [email or web address] Not available 03/12/2024 10:58:11 04/16/2024 04/16/2024 plan referral for pelvic floor pt, ok to use metrogel since helping sxs f/u with psychiatry f/u here 6 mo wwe or sooner if needs to [email or web address] Not available 04/16/2024 18:11:11 Plan of Treatment Reminders Order Date Submit Date Provider Last Modified By Organization Details Last Modified Time Details Appointments IRREGULAR BLEEDING 2024 11:30A M CHAZ VALLES NP Not available Not available Not available Lab None recorded. Referral None recorded. Procedures None recorded. Surgeries None recorded. Imaging None recorded. Medication Orders Metrogel Vaginal 0.75 % (37.5 mg/5 gram) 2023 024 [facility], [address] [place] [address] , [address], [place], [place], [id number], 04/16/2024 18:10:17 metronida zole 500 mg tablet 2023 024 [facility], [address] [place] [address] , [address], [place], [place], [id number], 04/11/2024 09:41:29 Patient TargetsNo targets recorded. Patient InstructionsNo instructions recorded. Reason for Referral None Reported. Results Created Date Observation Date Name Description Value Unit Range Abnormal Flag Note LastModifiedBy Organization Detail LastModifiedTime 02/27/20 24 02/27/2024 CULTU RE: GROUP B STREP SCREE N, REFLE X SUSCE PTIBI LITY result report SEE RESULT S BELOW Test: Cultu re: Group B Strep , Refle x Susce ptibi lity ([facility]/ [facility] ) Speci men Sourc e: Vagin a/Rec beckie Speci men Type: Vagin al/Re ctal Speci men Date: 02/26 1552 Resul t Date: 03/01 1426 Resul t Statu s: Final resul t Abnor mal: No Resul ting Lab: [facility] [address] [facility] [address] Tel: CULTU RE ----- ----- ----- --- No Group B strep isola faheem at 2 days (josias ctive broth enhan cemen t) Not Available [facility] (Lab) [address], [place], [address], 03/01/2024 15:29:13 01/31/2002/01/2024 , cody patterson w-up No observ ation record ed. [email or web address] [facility] [address], [place], [address], 02/01/2024 13:14:02 01/31/20 24 01/31/2024 US, obste tric, follo w-up No observ ation record ed. ISABEL Morelia [address], [place], [address], 02/04/2024 15:11:49 Result Notes None recorded. Problems Name Problem SNOMED Code Status Onset Date Resolution Date Notes Provider Name and Address Organization Details Recorded Time Social fear 036787490 Completed Anxiety- ok to restart lexapro Bambi Sam CNM [address], [place], [address], [facility] 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 4 17:13:44 Anemia 922802973 Completed Bambi Sam CNM [address], [place], [address], [facility] 4 16:11:56 Pregnanc y 41360769 Completed 202303/21/2024 Susan Rahman [facility], [facility] 4 16:13:09 Mixed anxiety and depressi ve disorder 203778945 Active 2023 Lurdes robins, [facility] 4 12:29:30 Anxiety 31636036 Completed 2023 Tu Saul appt on 12/04 started on mirtazap ine Bambi Sam CNM [address], [place], [address], [facility] 4 09:12:14 Problem Notes None recorded. Procedures Surgical History Date Name Laterality Status Provider Name and Address Organization Details Recorded Time 0 Laparoscopy completed Renée Slaughter [facility] 08/02/2023 14:42:16 Imaging Results None recorded. Procedure Notes None recorded. Medical Equipment None Reported. Allergies Allergen ID Allergen Name Allergen Category Reaction Reaction Severity Criticality Documentation Date Start Date Code Code System Note Provider Name and Address Organization Details Recorded Time 96061 Reglan medicatio n tachycard ia severe Not available 11/28/2023 9230 RxNorm Lurdes Demetrius robins, [facility] 10:17:55 Medications Name Sig Start Date Stop Date Status Note LastModified by Organization Details LastModified Time dicloxacill in 500 mg capsule Take 1 capsule every 6 hours by oral route. 04/11 completed Not Available Not Available Not Available buspirone 5 mg tablet 01/15 completed Not Available Not Available Not Available Protonix 40 mg tablet,hermes yed release Take 1 tablet every day by oral route. 2023 active Not Available Not Available Not Avai lable clindamycin HCl 300 mg capsule Take 1 capsule twice a day by oral route for 7 days. 01/01 completed Not Available Not Available Not Available fluconazole 150 mg tablet Take 1 tablet every day by oral route as directed for 1 day. 04/11 completed Not Available Not Available Not Available metronidazo le 0.75 % (37.5 mg/5 gram) vaginal gel Insert 1 applicato rful every day by vaginal route for 5 days. active Not Available Not Available No t Available terconazole 0.8 % vaginal cream Insert 1 applicato rful every day by vaginal route at bedtime for 3 days. 09/18 completed Not Available Not Available Not Available metronidazo le 500 mg tablet Take 1 tablet twice a day by oral route. active Not Available Not Available No t Available ondansetron HCl 4 mg/5 mL oral solution Take 5 mL every 6 hours by oral route as needed. 11/06 completed Not Available Not Available Not Available lorazepam 0.5 mg tablet 1 tablet every 8 hours prn only for anxiety active Not Available Not Available No t Available Compazine 5 mg tablet Take 1 tablet every 4-6 hours as needed for nausea 09/18 completed Not Available Not Available Not Available cephalexin 500 mg capsule Take 1 capsule every 12 hours by oral route. 12/11 completed Not Available Not Available Not Available promethazin e 25 mg tablet Take 1 tablet every 4 hours by oral route. 09/18 completed Not Available Not Available Not Available sertraline 25 mg tablet 04/11 completed Not Available Not Available Not Available hydroxyzine HCl 25 mg tablet Take 1 tablet 3 times a day by oral route as needed. active Not Available Not Available No t Available mirtazapine 15 mg tablet active Not Available Not Available Not Available scopolamine 1 mg over 3 days transdermal patch Apply 1 patch by transderm al route for 3 days. 11/06 completed Not Available Not Available Not Available ondansetron 4 mg disintegrat ing tablet Place 1 tablet every 8 hours by transling ual route. 11/06 completed Not Available Not Available Not Available Lexapro 10 mg tablet Take 1 tablet every day by oral route. 11/06 completed Not Available Not Available Not Available escitalopra m 5 mg tablet active Not Available Not Available Not Available nitrofurant oin monohydrate /macrocryst als 100 mg capsule TAKE 1 CAPSULE BY MOUTH EVERY 12 HOURS WITH FOOD/MEAL 08/01 completed Not Available Not Available Not Available Zofran (base) 11/06 completed Not Available Not Available Not Available Vitals Date Recorded Body height Body mass index (BMI) Body weight Systolic And Diastolic Provider Name and Address Organization Details Last Updated DateTime 02/27/2024 154.94 cm 29.5 kg/m2 18715.41 g 122/79 mm[Hg] Lurdes oRmo [facility] 02/27/2024 12:47:10 Date Recorded Body height Body mass index (BMI) Body weight Systolic And Diastolic Provider Name and Address Organization Details Last Updated DateTime 03/07/2024 154.94 cm 30.6 kg/m2 38824.96 g 113/76 mm[Hg] Lurdes Romo [facility] 03/07/2024 10:02:12 Date Recorded Body height Body mass index (BMI) Body weight Systolic And Diastolic Provider Name and Address Organization Details Last Updated DateTime 03/12/2024 154.94 cm 31.4 kg/m2 76736.33 g 124/83 mm[Hg] Lurdes Romo [facility] 03/12/2024 10:25:43 Date Recorded Body height Body mass index (BMI) Body weight Systolic And Diastolic Provider Name and Address Organization Details Last Updated DateTime 04/11/2024 154.94 cm 27.4 kg/m2 49171.89 g 122/79 mm[Hg] Lurdes Romo [facility] 04/11/2024 09:31:30 Date Recorded Body height Body mass index (BMI) Body weight Systolic And Diastolic Provider Name and Address Organization Details Last Updated DateTime 04/16/2024 154.94 cm 27.2 kg/m2 43560.3 g 120/79 mm[Hg] Lurdesdalton Romo [facility] 04/16/2024 17:58:19 Social History Question Answer Notes LastModified by Organizat ion Details LastModified Time Tobacco Smoking Status Never Smoker Renée robins, [facility] 08/02/2023 14:40:53 Are You Blind Or Do You Have Difficulty Seeing? No Information n ot available 08/02/2023 What Is Your Level Of Caffeine Consumption? None Information not available 08/02/2023 In The 14 Days Before Symptom Onset, Have You Had Close Contact With A Laboratory-confirm ed COVID-19 While That Case Was Ill? No Information n ot available 08/02/2023 In The 14 Days Before Symptom Onset, Have You Had Close Contact With A Person Who Is Under Investigation For COVID-19 While That Person Was Ill? No Information not available 08/02/2023 Have You Been To An Area Known To Be High Risk For COVID-19? No Information not available 08/02/2023 Are You Deaf Or Do You Have Serious Difficulty Hearing? No Information not available 08/02/2023 What Type Of Diet Are You Following? REGULAR Information n ot available 08/02/2023 What Is The Highest Grade Or Level Of School You Have Completed Or The Highest Degree You Have Received? [id number] Information not available 08/02/2023 Are There Any Guns Present In Your Home? No Information not available 08/02/2023 Do You Use Protection During Sex? No Information not available 08/02/2023 Do You Use Your Seat Belt Or Car Seat Routinely? Yes Information not available 08/02/2023 Are You Sexually Active? Yes Information not available 08/02/2023 Do You Have Smoke And Carbon Monoxide Detectors In Your Home? Yes Information not available 08/02/2023 How Much Tobacco Do You Smoke? No Information not available 08/02/2023 Do You Use Sunscreen Routinely? Yes Information not available 08/02/2023 Have You Used IV Drugs? No Information not available 08/02/2023 Do You Have Difficulty Walking Or Climbing Stairs? No Information not available 08/02/2023 Sex: Female Functional Status Question Answer Note LastModified by Organizat ion Details LastModified Time Do you use any illicit or recreational drugs? No Information not available 08/02/2023 What is your level of alcohol consumption? None Information not available 08/02/2023 Are you currently employed? No Information not available 08/02/2023 Are you able to walk? YESWOREST Information not available 08/02/2023 Are you able to care for yourself independently? Yes Information not available 08/02/2023 What is your occupation? None Information not available 08/02/2023 Do you have difficulty dressing, bathing, grooming, or toileting? No Information not available 08/02/2023 What is your exercise level? None Information not available 08/02/2023 Mental Status Question Answer Note LastModified by Organization D etails LastModified Time Do you feel stressed (tense, restless, nervous, or anxious, or unable to sleep at night)? [id number] Information not available 08/02/2023 Family History Relationship Description Onset Age of this Age Resolved Age Notes LastModified by Organization Details LastModified Time Brother Mental disorder Not available 2023 14:32:46 Father Anxiety disorder Not available 2023 14:32:46 Father Mental disorder Not available 2023 14:32:46 Paternal Grandmother Anxiety disorder Not available 2023 14:32:46 Paternal Grandmother Mental disorder Not available 2023 14:32:46 Mother Mental disorder Not available 2023 14:32:46 Maternal Grandmother Anxiety disorder Not available 2023 14:32:46 Maternal Grandmother Diabetes mellitus Not available 2023 14:32:46 Maternal Grandmother Mental disorder Not available 2023 14:32:46 Maternal Grandmother Kidney disease Not available 2023 14:32:46 Sister Anxiety disorder Not available 2023 14:32:46 Maternal Grandfather Anxiety disorder Not available 2023 14:32:46 Maternal Grandfather Mental disorder Not available 2023 14:32:46 Medical History Condition Response Allergies (Food, seasonal, environmental ) N Other N Blood Transfusion N Drug/Latex Allergies/Reactions N Breast Cancer N Dermatologic Disorders N Lung Disease N Defects or Inherited Disease N Breast Problem N Gestational Diabetes N Hematologic disorders N Anesthesia Complications N History of STI N Deep Vein Thrombosis N Polycystic ovary syndrome Y Anxiety Disorder Y Autoimmune disease N Arthritis N Infertility N Polyps N Acid Reflux (GERD) Y History of abnormal pap N Cancer N Stroke N Varicosities N Neurologic/Epilepsy N Endometriosis N High Cholesterol N Headaches N Fibromyalgia N Kidney Disease N Heart Problems N Kidney or Bladder Problems N Thyroid Problems N GI Problems N Eating Disorder N Anemia N Art (IVF or FET) N Psychiatric Illness N Ovarian Cancer N Diabetes N Pulmonary (TB, Asthma) N Hepatitis/Liver Disease N No Past Medical History N Eczema N Urinary Tract Infection Y Abuse/Domestic Violence N Asthma N Trauma/Violence N Depression/ depression Y Heart Disease N Pre-Eclampsia N Hypertension N Osteoporosis N Thrombophilias N Gynecological History Statement/Question Response Date of Last Mammogram Date of LMP 06/15/2023 On BCP's at Conception? N N Was last menstrual period normal Y STIs/STDs N HPV Vaccine N Duration of Flow (days) 5 Current Control Method None Are cycles usually normal Y Frequency of Cycle (Q days) 35 Sexually Active? Y None Menses Monthly Y Date of DEXA bone scan Age of first menstrual cycle 14 Date of Last Pap Smear Sexual Problems? N LMP Definite N Obstetrics History GPAL:G 1 P 1 0 0 1 Type Value Full Term 1 Living 1 Total 1 Past Encounters Encounter ID Performer Location Encounter Start Date Encounter Closed Date Diagnosis/Indication Diagnosis SNOMED-CT Code Diagnosis ICD10 Code Diagnosis Note [id number] Gus Chun MD [facility] [address] [address] 08/02/2023 13:48:32 08/02/2023 14:25:14 screening 192702667 Z36.87 Z3A.01 [id number] Gus Chun MD [facility] [address],[place] [address] 08/02/2023 13:52:21 08/02/2023 15:56:48 Nausea and vomiting 09927644 R11.2 Anxiety 46602708 F41.9 Amenorrhea 32638741 N91. 2 this patient is a 23-year-ol d female with amenorrhea and a positive test. She had an ultrasound today that revealed a 6 week intrauteri ne gestation. She has a viable intrauteri ne . We talked about early care. We talked about genetic screening. Talked about 12 week ultrasound . Talked about precaution s in . She has had marked nausea. We discussed various treatments for nausea and vomiting. She has anxiety that is been treated with Remeron and clonazepam historical ly. She has discontinu ed those medication s we talked about other treatments . She would like to observe her problem at this time and possibly take a treatment later if necessary. We spent more than 20 minutes face-to-fa ce. More than 50% was counseling . She will return in 2 weeks for sneak P, she will turn in 6 weeks for initial visit. [id number] Gus Chun MD [facility] [address],[facility] [place] [address] 08/28/2023 12:02:50 08/28/2023 12:32:28 [id number] Gus Chun MD [facility] [address],[place] [address] 09/19/2023 15:59:00 09/19/2023 16:41:17 screening 014671309 Z36.82 Z3A.[id number] [facility] [address],[place] [address] 09/19/2023 16:00:06 09/20/2023 11:36:20 Gestation period, 13 weeks 93964306 Z3A.13 Nausea and vomiting 1693 2000 R11.2 Anxiety 15084930 F41.9 [id number] Gus Chun MD [facility] [address],[place] [address] 11/07/2023 11:33:23 11/07/2023 12:37:41 screening for malformation 413526680 Z36.3 Z3A.[id number] [facility] [address],[place] [address] 11/07/2023 11:34:44 11/07/2023 12:51:34 Routine care 089957843 Z34.92 Anxiety 02841239 F41.9 Gastroesop hageal reflux disease 927520968 K21.9 [id number] Bambi Sam [facility] [address],[place] [address] 11/28/2023 10:09:14 11/28/2023 12:47:41 Cyst of left Bartholin's gland duct 4704250959 9457866 N75.0 if increases in size becomes more painful, plan incision and drainageri sk of serious infection if does not treat in Anxiety 79038493 F41.9 continue lexapro 10 mg daily daily and at next visit consider increasing dose. will discuss with dr. jackie Ayala. do not start or stop medicatio without talking to a provider, needs daily use of lexaprowil l try and make appt for pt with Jordana Snyder ed in pt treatment vs outpatient , will try outpatient at this time.if any suicidal thoughts plan ED for immediate evaluation Bacterial vaginosis 4197 33788 N76.0 history of recurrent bv, can increase risks of labor in pregnancys xs back except for odorwill plan extended swab and await treatment [id number] REY [facility]era[facility] [address],[place] [address] 12/12/2023 15:59:04 12/13/2023 15:46:50 Routine care 881835177 Z34.92 Gestation period, 25 weeks 12200597 Z3A.25 continue vitamin Mixed anxi ety and depressive disorder 442957509 F41.8 continue Mirtazapin e for anxiety [id number] Gus Chun MD [facility] [address],[place] [address] 01/02/2024 16:08:56 01/02/2024 16:48:58 Uterine size for dates discrepancy 196772593 O26.843 O35.8XX0 Z3A.[id number] [facility] [address],[place] [address] 01/02/2024 16:09:34 01/02/2024 17:16:48 Gestation period, 28 weeks 90587439 Z3A.28 continue vitamin Anxiety 60492150 F41.[id number] [facility] [address],[place] [address] 01/16/2024 14:57:48 01/17/2024 16:55:[address] [facility] [address] [place] [address] 01/18/2024 14:27:42 01/18/2024 16:31:00 Anxiety 54881104 F41.9 continue pnv, continue meds, ativan prn Routine an tenatal care 450934515 Z34.92 Gestation period, 30 weeks 64897205 Z3A.30 Gus Chun MD [facility] [address],[place] [address] 01/31/2024 17:33:04 02/01/2024 07:50:31 Uterine size for dates discrepancy 942591761 O26.843 Z3A.[id number] [facility] [address] [address] 02/01/2024 12:44:39 02/01/2024 13:43:59 Gestation period, 32 weeks 6786349 Z3A.32 continue vitamin [id number] [facility]Y [facility] [address] [address] 02/27/2024 12:31:34 02/27/2024 14:08:54 Gestation period, 36 weeks 50686932 Z3A.36 continue vitamin [id number] [facility] [address] [address] 03/07/2024 09:50:18 03/07/2024 10:15:51 [id number] Bambi Sam CNM [place] [address] [place] [address] 03/12/2024 10:10:48 03/12/2024 11:05:56 Gestation period, 38 weeks 42790743 Z3A.38 continue vitamin [id number] Bambi Sam CNM [facility] [address] [address] 04/11/2024 09:25:02 04/11/2024 09:42:59 Bacterial vaginosis 952830199 N76.0 will send vaginal culturetak e flagyl as directed [id number] Bambi Sam CNM [facility] [address] [address] 04/16/2024 17:44:46 04/16/2024 18:13:06 Vaginal irritation 915025931 N89.8 care 41805901 8 Z39.2 Health Concerns Section Related Observation LastModified by Organization Detai ls LastModified Time None Recorded Concern Status LastModified by Organization Details LastModified Time None Recorded Advance Directives Directive None Recorded Payers Insurance Date Sequence Insurance Name Policy Number Policy Mendez Covered Member ID Mendez Member ID Guarantor Name 02/27/2024 1 [place] [id number] Dionne Scruggsrester [id number] Dionne Whitley 04/16/2024 1 [facility] - DOS ON OR AFTER 20 (MEDICAID REPLACEMENT - HMO) Dionne Whitley [id number] Dinone Whitley 02/27/2024 [place] [facility] Dionne Whitley [id number] Dionne Whitley 11/06/2023 1 *SELF PAY* Hardin osiris ScruggsWhitley Notes Date Note Type Note Provider Name and Address Organization Details Recorded Time 4 text/html Generic HPI TemplateReported by Patient Bambi Sam CNM [address], [place], [address], [facility] 02/27/2024 14:03:45 4 text/html Generic HPI TemplateReported by Patient Bambi Sam CNM [address], [place], [address], [facility] 03/07/2024 10:15:13 4 text/html Generic HPI TemplateReported by Patient Bambi Sam CNM [address], [place], [address], [facility] 03/12/2024 10:58:36 4 text/html Vaginal/Vulvar ProblemReported by PatientHPIFor location, patient reportsvagina(odor, d/c took diflucan with no relief).ROS as noted in the HPI Bambi Sam CNM [address], [place], [address], [facility] 04/11/2024 09:42:22 4 text/html VisitReported by PatientHPIFor quality, patient reportsnsvd. For context, patient reportscomplications of : none,complications of labor: none, complications: none,good support from partner/family, andresumed menstrual bleeding no. For associated symptoms, patient reportsno abnormal bleeding,no vaginal discharge,no pelvic pain,no constipation,no fecal incontinence,no dysuria,no urinary incontinence, andno fever. For contraception plan, patient reportsdeclines contraception.increase in anxiety since delivery, started on lexapro by Leoncio zuluaga APN, wants to go back to psychiatristno suicidal thoughts, lots of help at homeROS as noted in the HPI Lurdes Romo [facility] 05/31/2024 13:58:32 OBGyn Episode Ob Episode Information Episode Created Date Number of Fetuses Patient Bloodtype Patient rh Status Prepregnancy Weight lbs Domestic Partner Domestic Partner Phone Father Name Dairy Technician Status 09/19/19 24 1 B Positive [address] [employer] CLOSED Fetus Data First Name Last Name Admitted to NICU Weight (g) Sex Living Outcome Pediatric Complications Fetus ID Race Codes Race Delivery Type 3430.01 [id number] M true Full Term [id number] Vaginal Delivery Problems Problem Notes ativan 0.5mg for emergency u se, panic attacks Problem Name Start Date End Date Resolution Snomed Code Not e Anemia 582345619 Dilatation of renal pelvis 785343814 repeat 4 weeks Social fear 400199771 Anxiety- ok to restart lexapro Anxiety 12/03/2023 21802921 Tu You ng appt on 12/04 started on mirtazapine Adam Calculation Initial Adam Date Initial Exam Date Initial Exam Provider Initial Ultrasound Date Last Menstrual Period Date Ultra Sound Weeks Gestation 03/25/2024 08/28/2023 08/28/2023 06/15/2023 10 Eighteen To Twenty Week Adam Update Ultra Sound Date Fundal Height At Umbil Quickening Date Ultra Sound Latest Weeks Gestation Final Adam Confirmed By Final Adam Confirmed Date Final Adam Date Ultra Sound Latest Days Gestation 09/19/19 24 13 [email or web address] 09/19/2023 03/25/20 24 4 Pre- Flowsheet Flowsheet Date 09/19/2023 Dunham Score Blood Edema Fundus Height Fundus Units Glucose Ketones Leukocytes Nitrite Labor Signs Protein Cervic Dilation Cervic Effacement Cervic Station neg none none trace Type Weight in lbs Pre/Post Dialysis Refused Weight 118.181564553387 BP Diastolic BP Location Tested BP Systolic BP Type 76 121 Fetus Heart Rate Present Fetus Movement A Yes Comments Patent states that having na usea and vomiting. would like refill of zofran and scop patch, had negative reaction to reglan, History of severe social anxiety, hard to leave home, dr. yao was last drDeysi very upset when he left,discussed things to make her more comfortable, same providers, in room yasemin, blood draws in room, lexapro was working, psychiatrist , stopped all medication. will discuss counseling at next visit (will see if tu [employer] OPERATOR will take a pt), education and precautions reviewed. f/u 2 weeks, anatomy on 4 weeks Flowsheet Date 11/07/2023 Dunham Score Blood Edema Fundus Height Fundus Units Glucose Ketones Leukocytes Nitrite Labor Signs Protein Cervic Dilation Cervic Effacement Cervic Station Type Weight in lbs Pre/Post Dialysis Refused BP Diastolic BP Location Tested BP Systolic BP Type Fetus Heart Rate Present Fetus Movement Comments Flowsheet Date 11/07/2023 Dunham Score Blood Edema Fundus Height Fundus Units Glucose Ketones Leukocytes Nitrite Labor Signs Protein Cervic Dilation Cervic Effacement Cervic Station none Type Weight in lbs Pre/Post Dialysis Refused Weight 123.047262312264 BP Diastolic BP Location Tested BP Systolic BP Type 72 107 Fetus Heart Rate Present Fetus Movement A Yes Comments Patient states that having a nxiety, panic attacks, pain, contractions, nausea and vomiting. was on protonix will send rx to pharmacy, did not restart lexapro cant remember it daily, doing a little better , her mother was worried had a panic attack last week that she couldnt get out of, hydroxyzine did not help prior, lorazepam did help, reviewed with amira martinez and will rx for panic attack use, use sparingly in , risk of addiction, any suicidal thoughts to EDanatomy complete f/u 4 weeks Flowsheet Date 11/28/2023 Dunham Score Blood Edema Fundus Height Fundus Units Glucose Ketones Leukocytes Nitrite Labor Signs Protein Cervic Dilation Cervic Effacement Cervic Station none Type Weight in lbs Pre/Post Dialysis Refused Weight 126.02800687405 BP Diastolic BP Location Tested BP Systolic BP Type 69 102 Fetus Heart Rate Present A 145 Fetus Movement A Yes Comments Patient is having an issues with Bartholin gland pain, anxiety, dizzy, and feels like going to pass out. rx for bartholins cyst, call if gets bigger and will see that day, see note for more details, anxiety, pt restarted lexapro on her own and also started klonpin that she had left over. tried lorazepam but stopped, did not work for her, managing meds without talking to a provider, plan visit with jason haq, see note Flowsheet Date 12/12/2023 Dunham Score Blood Edema Fundus Height Fundus Units Glucose Ketones Leukocytes Nitrite Labor Signs Protein Cervic Dilation Cervic Effacement Cervic Station none 25 cm Type Weight in lbs Pre/Post Dialysis Refused 130.549087792378 BP Diastolic BP Location Tested BP Systolic BP Type 74 112 Fetus Heart Rate Present A 144 Fetus Movement A Yes Comments doing well drove herself, hardin s not started keflex, saw tu zuluaga and started on mirtazapine and feeling much better, wants lorazepam prn but will need to talk to MD, precautions and education plan 3 week GCT Flowsheet Date 01/02/2024 Dunham Score Blood Edema Fundus Height Fundus Units Glucose Ketones Leukocytes Nitrite Labor Signs Protein Cervic Dilation Cervic Effacement Cervic Station Type Weight in lbs Pre/Post Dialysis Refused BP Diastolic BP Location Tested BP Systolic BP Type Fetus Heart Rate Present Fetus Movement Comments Flowsheet Date 01/02/2024 Dunham Score Blood Edema Fundus Height Fundus Units Glucose Ketones Leukocytes Nitrite Labor Signs Protein Cervic Dilation Cervic Effacement Cervic Station none Type Weight in lbs Pre/Post Dialysis Refused 138.156532098904 BP Diastolic BP Location Tested BP Systolic BP Type 80 117 Fetus Heart Rate Present Fetus Movement A Yes Comments Patient states that is havin g numbness in legs and arms. ok for ice braces, gct today, ok for covid, tdap, rsv, precautions and education. mild bilateral pyelectasis, efw 69% f/u 2 weeks, rpt growth 4 weeks Flowsheet Date 01/16/2024 Dunham Score Blood Edema Fundus Height Fundus Units Glucose Ketones Leukocytes Nitrite Labor Signs Protein Cervic Dilation Cervic Effacement Cervic Station none Type Weight in lbs Pre/Post Dialysis Refused 142.705451578712 BP Diastolic BP Location Tested BP Systolic BP Type 75 112 Fetus Heart Rate Present Fetus Movement A Yes Comments Flowsheet Date 01/18/2024 Dunham Score Blood Edema Fundus Height Fundus Units Glucose Ketones Leukocytes Nitrite Labor Signs Protein Cervic Dilation Cervic Effacement Cervic Station none Type Weight in lbs Pre/Post Dialysis Refused Weight 143.037265972729 BP Diastolic BP Location Tested BP Systolic BP Type 73 113 Fetus Heart Rate Present Fetus Movement A Yes Comments ativan 0.5mg prn only, can b e addictive, doing well except for some dizziness, will start iron infusion for anemia, +FM, education and precautions f/u 2 weeks with a growth Flowsheet Date 01/31/2024 Dunham Score Blood Edema Fundus Height Fundus Units Glucose Ketones Leukocytes Nitrite Labor Signs Protein Cervic Dilation Cervic Effacement Cervic Station Type Weight in lbs Pre/Post Dialysis Refused BP Diastolic BP Location Tested BP Systolic BP Type Fetus Heart Rate Present Fetus Movement Comments Flowsheet Date 02/01/2024 Dunham Score Blood Edema Fundus Height Fundus Units Glucose Ketones Leukocytes Nitrite Labor Signs Protein Cervic Dilation Cervic Effacement Cervic Station trace Type Weight in lbs Pre/Post Dialysis Refused Weight 148.976005409712 BP Diastolic BP Location Tested BP Systolic BP Type 80 120 Fetus Heart Rate Present Fetus Movement A Yes Comments Patient is having some BH co ntractions and swelling. doing well, efw 57%, kidneys wnl education and precautions declined rsv f/u 2 weeks Flowsheet Date 02/27/2024 Dunham Score Blood Edema Fundus Height Fundus Units Glucose Ketones Leukocytes Nitrite Labor Signs Protein Cervic Dilation Cervic Effacement Cervic Station trace 34 cm Type Weight in lbs Pre/Post Dialysis Refused Weight 156.898893936590 BP Diastolic BP Location Tested BP Systolic BP Type 79 122 Fetus Heart Rate Present A 150 Fetus Movement A Yes Comments Patient is having contractio ns, back pain, hand pain, and swelling. reviewed ice, braces, may plan iol at next visit, +FM, gbs collected, precautions and education Flowsheet Date 03/07/2024 Dunham Score Blood Edema Fundus Height Fundus Units Glucose Ketones Leukocytes Nitrite Labor Signs Protein Cervic Dilation Cervic Effacement Cervic Station 36 cm Type Weight in lbs Pre/Post Dialysis Refused Weight 162.732571426003 BP Diastolic BP Location Tested BP Systolic BP Type 76 113 Fetus Heart Rate Present A 154 Fetus Movement Comments requesting EIOL 03/18 at 170 0, precautions and education +FM, f/u one week Flowsheet Date 03/12/2024 Dunham Score Blood Edema Fundus Height Fundus Units Glucose Ketones Leukocytes Nitrite Labor Signs Protein Cervic Dilation Cervic Effacement Cervic Station trace 37 cm Type Weight in lbs Pre/Post Dialysis Refused Weight 166.854929446490 BP Diastolic BP Location Tested BP Systolic BP Type 83 124 Fetus Heart Rate Present A 152 Present Fetus Movement A Yes Comments Patient states that is havin g some pain, contractions, swelling, nausea and vomiting. IOL next week +FM precautions and education f/u iol Menstrual History Last Menstrual Date Menses Monthly On Bcp Conception Prior Menses Frequency Hcg Plus Date Menarche Onset Age 0206/15/2023 Genetic Screening And Infection History Question Response Note Mental Retardation/Autism false Patient's Age Will Be 35 Yea rs Or Older At Estimated Date of Delivery false Thalassemia (Turkmen, Turkmen, Mediterranean, Or Background): MCV < 80 false Neural Tube Defect (Meningom yelocele, Spina Bifida, Or Anencephaly) false Congenital Heart Defect false Down Syndrome false Arthur-Sachs (eg, Samaritan, Cajun, [place]) f alse Hussein Disease false Sickle Cell Disease Or Trait () false Hemophilia Or Other Blood Disorders false Muscular Dystrophy false Cystic Fibrosis false Mclaughlin's Chorea false Intellectual Disability/Autism false If Yes, Was Person Tested For Fragile X? false Other Inherited Genetic Or Chromosomal Disorder false Maternal Metabolic Disorder (eg, Type 1 Diabetes , PKU) false Patient Or Baby's Father Had A Child With Defects Not Listed Above false Recurrent Loss, Or A Stillbirth false Medications (including Suppl ements, Vitamins, Herbs, OTC Drugs), Illicit/Recreational Drugs, Alcohol false zofran, sc op patch If Yes, Agent(s) And Strength/Dosage false Any Other Genetic History false Live With Someone With TB Or Exposed To TB false Patient Or Partner Has History Of Genital Herpes false Rash Or Viral Illness Since Last Menstrual Perio d false History Of STD, Gonorrhea, Chlamydia, HPV, Syphi lis false Other Infection History false History of HIV false History of Hepatitis false Prior GBS-infected child false Hemoglobinopathy Or Carrier false Other Structural Defect false Recent Travel History Outside of Country false Delivery Information Delivery Date Delivery Type Labor Anesthesia Weeks Gestation Incision Type Labor Labor Length Hrs Delivered By Post Complications Tubal Sterilization Discharge Date Comments 4 Induce d Regional-Ep idural 39.1 false Bambi Sam CNM Anemia,An xiety,Dil atation of renal pelvis,So cial fear Discharge Information Feeding Method Contraceptive Method Maternal HG B and HCT Levels
--- OUTSIDE RECORDS SUMMARY | 2024-11-28 04:26 | XMS_ITS | Data Portability ---
Author Organization SYDNIE JOHNYSerina Bahena Address [address] [place] [address] Care Team Providers Care Document Photographer Name Role Phone LUPE RUTLEDGE Email Production Consultant Unavailable Assessment Encounter Date Assessment Date Assessment LastModified by Organization Details LastModified Time 11/21/2019 11/21/2019 LUCIA Alcaraz, [facility] Not available 11/21/2019 19:07:42 09/08/2020 09/08/2020 LUCIA Perla mwasserman Not available 09/08/2020 15:24:25 07/19/2021 07/19/2021 LUCIA Hair Not available 07/20/2021 10:31:09 04/11/2022 04/11/2022 21yo G0 F with chronic pelvic pain, anxiety, depression, recurrent BV presenting for knot on vagina and irregular periods. Normal gynecologic exam today. Not available 04/18/2022 16:35:47 Plan of Treatment Reminders Order Date Submit Date Provider Last Modified By Organization Details Last Modified Time Details Appointments None record ed. Lab urinal ysis, dipsti ck 2021 022 In-Office Order, Internal Use Only DO Not Attach Compendium DO Not Attach Compendium, Do Not Delete/merge, [id number] 16:59:46 pregna ncy test, urine 2021 022 In-Office Order, Internal Use Only DO Not Attach Compendium DO Not Attach Compendium, Do Not Delete/merge, [id number] 16:59:46 bacter ial vagino sis score, AD+pr obe, vagina l fluid (OBS) 2021 022 [facility], [address], [address], [place], [address], 16:09:29 pregna ncy test, urine 2021 022 In-Office Order, Internal Use Only DO Not Attach Compendium DO Not Attach Compendium, Do Not Delete/merge, 12:48:04 pregna ncy test, urine 2020 021 [email or web address] In-Office Order, Internal Use Only DO Not Attach Compendium DO Not Attach Compendium, Do Not Delete/merge, 15:45:57 urinal ysis, dipsti ck 2020 021 [email or web address] In-Office Order, Internal Use Only DO Not Attach Compendium DO Not Attach Compendium, Do Not Delete/merge, 15:45:56 hepati tis panel (A+B+C ), acute, serum 2020 [facility], [address], [address], [place], [address], 09:38:07 hepati tis B surfac e Ab, qualit ative, serum 2020 021 [facility], [address], [address], [place], [address], 1 09:38:08 HIV 1+2 AB + HIV 1 p24 Ag, qualit ative immuno assay, serum 2020 021 [facility], 20[facility] Jaime Rogel, [address], [address], 1 09:38:10 HSV 2 IgG Ab, QN, IA, serum 2020 [facility] ([facility] - All Locations), Patient Can Go To The Location Of Their Choice, 09:38:10 RPR (rapid plasma reagin ), serum 2020 [facility] (Centralized Electronic Ordering - All Locations), Patient Can Go To The Location Of Their Choice, 09:38:09 bacter ial vagino sis panel, vagina l 2020 [facility] - [facility]), Patient Can Go To The Location Of Their Choice, 03:06:11 cultur e, vagina l/rect al, strept ococcu s group B 2020 [facility] (Centralized Electronic Ordering - All Locations), Patient Can Go To The Location Of Their Choice, 03:06:12 CT + NG + TV, DNA, urine/ swab 2019 020 [facility], [address] [place] [address], [address], [place], [address], 0 09:11:43 urinal ysis, dipsti ck 2019 020 In-Office Order, Internal Use Only DO Not Attach Compendium DO Not Attach Compendium, Do Not Delete/merge, [id number] 0 15:57:53 cultur e, urine 2019 020 [facility], [address] [place] [address], [address], [place], [address], 0 20:07:50 Referral counse elaine referr al 2020 021 elida MONACOW, [address] [place], [address], 1 08:21:11 Procedures None record ed. Surgeries None record ed. Imaging US, pelvis , transa bdomin al + transv aginal 2019 020 [facility] ([facility] Call Scheduling), [address] [place], [address], 0 15:59:31 Medication Orders naprox en 500 mg tablet 2021 022 [facility], [address] [place] [address] , [address], [place], [place], [id number], 2 09:58:08 flucon azole 150 mg tablet 2021 022 [id number], [address], [place], [place], [id number], 2 09:05:13 Slynd 4 mg (28) tablet [address] , [address], [place], [place], [id number], 2 09:07:44 naprox en 500 mg tablet 2020 021 [facility], [address] [place] [address] , [address], [place], [place], [id number], 1 15:47:14 ceftri axone 250 mg soluti on for inject ion [address] , [address], [place], [place], [id number], 1 16:41:52 azithr omycin 250 mg tablet 2020 021 [facility], [address] [place] [address] , [address], [place], [place], [id number], 16:42:01 metron idazol e 500 mg tablet 2020 021 [facility], [address] [place] [address] , [address], [place], [place], [id number], 16:41:12 flucon azole 150 mg tablet 2020 021 [facility], [address] [facility] , [address], [place], [place], [id number], 2 09:05:13 escita lopram 10 mg tablet 2020 021 [facility], [address] [facility] , [address], [place], [place], [id number], 2 09:07:33 Azo Urinar y Pain Relief 95 mg tablet 2019 020 [facility], [address] [place] [address] , [address], [place], [place], [id number], 14:51:22 Patient TargetsNo targets recorded. Patient Instructions Encounter Date Encounter Id Patient Instructions Last Modified By Organization Details Last Modified Time 09/08/2020 [id number] trichomoniasis: care instructions mwasserman Not available 09/08/2020 15:47:00 IUD removal: care instructions mwasserman Not available 09/08/2020 15:45:56 12/08/2021 [id number] irritable bowel syndrome: care instructions Not available 12/08/2021 17:11:59 diet for irritable bowel syndrome: care instructions Not available 12/08/2021 17:11:59 04/11/2022 [id number] LUCIA Tucker Discussed with Nikki Rutledge PA-C Not available 04/11/2022 10:25:28 Reason for Referral Counseling Referral for Mixe d anxiety and depressive disorder Referring Physician: Hakan Middleton, [employer], Encounter Date: 09/08/2020 Results Created Date Observation Date Name Description Value Unit Range Abnormal Flag Note LastModifiedBy Organization Detail LastModifiedTime 09/09/19 21 09/08/2020 urina lysis , dipst ick Leukocytes Trace Not Available In-Offi ce Order Internal Use Only DO Not Attach Compendium DO Not Attach Compendium, Do Not Delete/merge, [id number] 09/08/2020 15:06:01 09/09/19 21 09/08/2020 urina lysis , dipst ick Nitrite negati ve Not Available In-Office Order Internal Use Only DO Not Attach Compendium DO Not Attach Compendium, Do Not Delete/merge, [id number] 09/08/2020 15:06:01 09/09/19 21 09/08/2020 urina lysis , dipst ick Urobilinogen .2 Not Available In-Of fice Order Internal Use Only DO Not Attach Compendium DO Not Attach Compendium, Do Not Delete/merge, [id number] 09/08/2020 15:06:01 09/09/19 21 09/08/2020 urina lysis , dipst ick Protein Negati ve Not Available In-Office Order Internal Use Only DO Not Attach Compendium DO Not Attach Compendium, Do Not Delete/merge, [id number] 09/08/2020 15:06:01 09/09/19 21 09/08/2020 urina lysis , dipst ick pH 7.0 Not Available In-Office Order Internal Use Only DO Not Attach Compendium DO Not Attach Compendium, Do Not Delete/merge, [id number] 09/08/2020 15:06:01 09/09/19 21 09/08/2020 urina lysis , dipst ick Blood Negati ve Not Available In-Office Order Internal Use Only DO Not Attach Compendium DO Not Attach Compendium, Do Not Delete/merge, [id number] 09/08/2020 15:06:01 09/09/19 21 09/08/2020 urina lysis , dipst ick Specific [place] 1.025 Not Available In-Off ice Order Internal Use Only DO Not Attach Compendium DO Not Attach Compendium, Do Not Delete/merge, [facility] 09/08/2020 15:06:01 09/09/19 21 09/08/2020 urina lysis , dipst ick Ketone Negati ve Not Available In-Office Order Internal Use Only DO Not Attach Compendium DO Not Attach Compendium, Do Not Delete/merge, [facility] 09/08/2020 15:06:01 09/09/19 21 09/08/2020 urina lysis , dipst ick Bilirubin Negati ve Not Available In-Office Order Internal Use Only DO Not Attach Compendium DO Not Attach Compendium, Do Not Delete/merge, [facility] 09/08/2020 15:06:01 09/09/19 21 09/08/2020 urina lysis , dipst ick Glucose Negati ve Not Available In-Office Order Internal Use Only DO Not Attach Compendium DO Not Attach Compendium, Do Not Delete/merge, [facility] 09/08/2020 15:06:01 09/09/19 21 09/08/2020 pregn mare test, urine HCG negati ve Not Available In-Office Order Internal Use Only DO Not Attach Compendium DO Not Attach Compendium, Do Not Delete/merge, [facility] 09/08/2020 15:05:41 11/21/19 20 11/23/2019 cultu re, urine urine culture, routine Final report abnormal Not Available [facility] ([facility]) [address] [facility] [address], [place], [address], 11/23/2019 20:07:50 11/21/19 20 11/23/2019 cultu re, urine result 1 Commen t abnormal Pseud omona s aerug inosa Great er than 100,0 00 colon y formi ng units per mL Not Available [facility] ([facility]) [address] [facility] [address], [place], [address], 11/23/2019 20:07:50 11/21/19 20 11/23/2019 cultu re, urine antimicrobia l susceptibili ty Commen t S = Susce ptibl e; I = Inter media te; R = Resis tant P = Posit zonia; N = Negat zonia MICS are expre ssed in micro grams per mL Antib iotic RSLT# 1 RSLT# 2 RSLT# 3 RSLT# 4 Amika rosey S Cefep veronika S Cefta zidim e S Cipro floxa rosey S Genta micin S Imipe nem S Levof loxac in S Merop enem S Piper acill in S Ticar cilli n S Tobra mycin S Not Available [facility] ([facility]) [address] [place], [address], 11/23/2019 20:07:50 11/21/19 20 11/25/2019 CT + NG + TV, DNA, urine /swab chlamydia by AD Negati ve negati ve Not Available [facility] ([facility]) [address] [place], [address], 11/25/2019 09:11:43 11/21/19 20 11/25/2019 CT + NG + TV, DNA, urine /swab gonococcus by AD Negati ve negati ve Not Available [facility] ([facility]) [address] [place], [address], 11/25/2019 09:11:43 11/21/19 20 11/25/2019 CT + NG + TV, DNA, urine /swab trich vag by AD Negati ve negati ve Not Available [facility] ([facility]) [address] [place], [address], 11/25/2019 09:11:43 11/21/19 20 11/21/2019 urina lysis , dipst ick Leukocytes Trace Not Available In-Offi ce Order Internal Use Only DO Not Attach Compendium DO Not Attach Compendium, Do Not Delete/merge, [id number] 11/21/2019 15:20:40 11/21/1911/21/2019 urina lysis , dipst ick Nitrite negati ve Not Available In-Office Order Internal Use Only DO Not Attach Compendium DO Not Attach Compendium, Do Not Delete/merge, 11/21/2019 15:20:40 11/21/19 20 11/21/2019 urina lysis , dipst ick Urobilinogen .2 Not Available In-Of fice Order Internal Use Only DO Not Attach Compendium DO Not Attach Compendium, Do Not Delete/merge, 11/21/2019 15:20:40 11/21/19 20 11/21/2019 urina lysis , dipst ick Protein Negati ve Not Available In-Office Order Internal Use Only DO Not Attach Compendium DO Not Attach Compendium, Do Not Delete/merge, 11/21/2019 15:20:40 11/21/19 20 11/21/2019 urina lysis , dipst ick pH 5.5 Not Available In-Office Order Internal Use Only DO Not Attach Compendium DO Not Attach Compendium, Do Not Delete/merge, [facility] 11/21/2019 15:20:40 11/21/19 20 11/21/2019 urina lysis , dipst ick Blood Non-He molyze d: Trace Not Available In-Office Order Internal Use Only DO Not Attach Compendium DO Not Attach Compendium, Do Not Delete/merge, [id number] 11/21/2019 15:20:40 11/21/19 20 11/21/2019 urina lysis , dipst ick Specific [place] 1.025 Not Available In-Off ice Order Internal Use Only DO Not Attach Compendium DO Not Attach Compendium, Do Not Delete/merge, 11/21/2019 15:20:40 11/21/19 20 11/21/2019 urina lysis , dipst ick Ketone Negati ve Not Available In-Office Order Internal Use Only DO Not Attach Compendium DO Not Attach Compendium, Do Not Delete/merge, [facility] 11/21/2019 15:20:40 11/21/19 20 11/21/2019 urina lysis , dipst ick Bilirubin Negati ve Not Available In-Office Order Internal Use Only DO Not Attach Compendium DO Not Attach Compendium, Do Not Delete/merge, [id number] 11/21/2019 15:20:40 11/21/19 20 11/21/2019 urina lysis , dipst ick Glucose Negati ve Not Available In-Office Order Internal Use Only DO Not Attach Compendium DO Not Attach Compendium, Do Not Delete/merge, [id number] 11/21/2019 15:20:40 09/09/19 21 09/09/2020 hepat itis panel (A+B+ C), acute , serum hep A Ab, IgM Negati ve negati ve Not Available [facility] ([facility]) [address] [place], [address], 09/09/2020 09:38:07 09/09/19 21 09/09/2020 hepat itis panel (A+B+ C), acute , serum HBsAg screen Negati ve negati ve Not Available [facility] ([facility]) [address] [place], [address], 09/09/2020 09:38:07 09/09/19 21 09/09/2020 hepat itis panel (A+B+ C), acute , serum hep B core Ab, IgM Negati ve negati ve Not Available [facility] ([facility]) [address] [place], [address], 09/09/2020 09:38:07 09/09/19 21 09/09/2020 hepat itis panel (A+B+ C), acute , serum hep C virus Ab <0.1 s/co_ ratio 0.0-0. 9 Negat zonia: < 0.8 Indet ermin ate: 0.8 - 0.9 Posit zonia: > 0.9 The CDC recom mends that a posit zonia HCV antib chapo resul t be follo wed up with a HCV Nucle ic Acid Ampli ficat ion test (5507 13). Not Available [facility] ([facility]) [address] [place], [address], 09/09/2020 09:38:07 09/09/19 21 09/09/2020 hepat itis B surfa ce Ab, quali tativ e, serum hep B surface Ab, qual Non Reacti ve Non React zonia: Incon siste nt with immun ity, less than 10 mIU/m L React zonia: Consi stent with immun ity, great er than 9.9 mIU/m L Not Available [facility] ([facility]) [address] [facility] [address], [place], [address], 09/09/2020 09:38:08 09/09/1909/09/2020 RPR (rapi d plasm a reagi n), serum RPR Non Reacti ve non reacti ve Not Available [facility] ([facility]) [address] [facility] [address], [place], [address], 09/09/2020 09:38:09 09/09/1909/09/2020 HIV 1+2 AB + HIV 1 p24 Ag, quali tativ e immun oassa y, serum HIV screen 4TH generation wrfx Non Reacti ve non reacti ve Not Available [facility] ([facility]) [address] [facility] [address], [place], [address], 09/09/2020 09:38:10 09/09/1909/09/2020 HSV 2 IgG Ab, QN, IA, serum hsv 2 IgG, type spec <0.91 index 0.00-0 .90 Negat zonia <0.91 Equiv ocal 0.91 - 1.09 Posit zonia >1.09 Note: Negat zonia indic ates no antib odies detec faheem to HSV-2 . Equiv ocal may sugge st early infec tion. If clini bonnie appro priat e, retes t at later date. Posit zonia indic ates antib odies detec faheem to HSV-2 . Not Available [facility] ([facility]) [address] [facility] [address], [place], [address], 09/09/2020 09:38:10 09/09/19 21 09/11/2020 bacte rial vagin osis panel , vagin al trich vag by AD Negati ve negati ve Not Available [facility] ([facility]) [address] [place], [address], 09/13/2020 03:06:11 09/09/19 21 09/11/2020 bacte rial vagin osis panel , vagin al chlamydia trachomatis, AD Negati ve negati ve Not Available [facility] ([facility]) [address] [place], [address], 09/13/2020 03:06:11 09/09/1909/11/2020 bacte rial vagin osis panel , vagin al neisseria gonorrhoeae, AD Negati ve negati ve Not Available [facility] ([facility]) [address] [place], [address], 09/13/2020 03:06:11 09/09/19 21 09/12/2020 bacte rial vagin osis panel , vagin al atopobium vaginae Low - 0 score Not Available [facility] ([facility]) [address] [place], [address], 09/13/2020 03:06:11 09/09/19 21 09/12/2020 bacte rial vagin osis panel , vagin al bvab 2 Low - 0 score Not Available [facility] ([facility]) [address] [place], [address], 09/13/2020 03:06:11 09/09/19 21 09/12/2020 bacte rial vagin osis panel , vagin al megasphaera 1 Low - 0 score Calcu late total score by janeth coronado the 3 indiv idual bacte rial vagin osis (BV) marke r score s toget her. Total score is inter prete d as follo ws: Total score 0-1: Indic ates the absen ce of BV. Total score 2: Indet ermin ate for BV. Addit ional clini tyrell data shoul d be evalu ated to estab melanie cintron osamara. Total score 3-6: Indic ates the prese nce of BV. This test was devaminata terry and its perfo rmanc e balwinder cteri stics deter mined by [facility]. It has not been clear ed or appro jannette by the Food and Drug Admin istra tion. Not Available [facility] ([facility]) [address] [place], [address], 09/13/2020 03:06:11 09/09/19 21 09/12/2020 bacte rial vagin osis panel , vagin al lou albicans, AD Negati ve negati ve Not Available [facility] ([facility]) [address] [place], [address], 09/13/2020 03:06:11 09/09/1909/12/2020 bacte rial vagin osis panel , vagin al lou glabrata, AD Negati ve negati ve Not Available [facility] ([facility]) [address] [place], [address], 09/13/2020 03:06:11 09/09/19 21 09/13/2020 bacte rial vagin osis panel , vagin al hsv 1 AD Negati ve negati ve Not Available [facility] ([facility]) [address] [place], [address], 09/13/2020 03:06:11 09/09/1909/13/2020 bacte rial vagin osis panel , vagin al hsv 2 AD Negati ve negati ve Not Available [facility] ([facility]) [address] [place], [address], 09/13/2020 03:06:11 09/09/19 21 09/10/2020 cultu re, vagin al/re ctal, strep tococ cus group B strep gp B AD Negati ve negati ve Cente rs for Disea se Contr ol and Preve ntion (CDC) and [facility] can Congr ess of Obste trici ans and Gynec ologi sts (ACOG ) guide lines for preve ntion of perin atal group B strep tococ tyrell (GBS) disea se speci fy co-co llect ion of a vagin al and recta l swab speci men to maxim ize sensi tivit y of GBS detec tion. Per the CDC and ACOG, swabb ing both the lower vagin a and rectu m subst antia lly incre ases the yield of detec tion nissa red with sampl ing the vagin a alone . Penic illin G, ampic illin , or cefaz sam are indic ated for intra partu m proph ylaxi s of perin atal GBS colon izati on. Refle x susce ptibi lity testi ng shoul d be perfo rmed prior to use of clind amyci n only on GBS isola damaso from penic illin -luisa rgic women who are consi dered a high risk for anaph ylaxi s. Treat ment with vanco mycin witho ut addit ional testi ng is warra nted if resis tance to clind amyci n is noted . Not Available [facility] ([facility]) [address] [place], [address], 09/13/2020 03:06:12 07/20/19 22 07/19/2021 pregn mare test, urine HCG negati ve Not Available In-Office Order Internal Use Only DO Not Attach Compendium DO Not Attach Compendium, Do Not Delete/merge, [id number] 07/19/2021 12:29:30 12/09/19 22 12/15/2021 NUSWA B VG+, HSV hsv 1 AD NEGATI VE negati ve Not Available [facility] ([facility]) [address] [place], [address], 12/17/2021 16:09:29 12/09/19 22 12/15/2021 NUSWA B VG+, HSV hsv 2 AD NEGATI VE negati ve Not Available [facility] ([facility]) [address] [facility] [address], [place], [address], 12/17/2021 16:09:29 12/09/19 22 12/16/2021 NUSWA B VG+, HSV trich vag by AD NEGATI VE negati ve Not Available [facility] ([facility]) [address] [place], [address], 12/17/2021 16:09:29 12/09/19 22 12/16/2021 NUSWA B VG+, HSV chlamydia trachomatis, AD NEGATI VE negati ve Not Available [facility] ([facility]) [address] [place], [address], 12/17/2021 16:09:29 12/09/19 22 12/16/2021 NUSWA B VG+, HSV neisseria gonorrhoeae, AD NEGATI VE negati ve Not Available [facility] ([facility]) [address] [place], [address], 12/17/2021 16:09:29 12/09/19 22 12/17/2021 NUSWA B VG+, HSV atopobium vaginae LOW - 0 score Not Available [facility] ([facility]) [address] [place], [address], 12/17/2021 16:09:29 12/09/19 22 12/17/2021 NUSWA B VG+, HSV bvab 2 LOW - 0 score Not Available [facility] ([facility]) [address] [place], [address], 12/17/2021 16:09:29 12/09/19 22 12/17/2021 NUSWA B VG+, HSV megasphaera 1 LOW - 0 score Calcu late total score by janeth coronado the 3 indiv idual bacte rial vagin osis (BV) marke r score s toget her. Total score is inter prete d as follo ws: Total score 0-1: Indic ates the absen ce of BV. Total score 2: Indkatie annin ate for BV. Addit ional clini tyrell data shoul d be evalu ated to estab melanie a diagn osis. Total score 3-6: Indic ates the prese nce of BV. This test was devel oped and its perfo rmanc e balwinder cteri stics deter mined by [facility]. It has not been clear ed or appro jannette by the Food and Drug Admin istra tion. Not Available [facility] ([facility]) [address] [facility] [address], [place], [address], 12/17/2021 16:09:29 12/09/19 22 12/17/2021 NUSWA B VG+, HSV lou albicans, AD NEGATI VE negati ve Not Available [facility] ([facility]) [address] [facility] [address], [place], [address], 12/17/2021 16:09:29 12/09/19 22 12/17/2021 NUSWA B VG+, HSV lou glabrata, AD NEGATI VE negati ve Not Available [facility] ([facility]) [address] [facility] [address], [place], [address], 12/17/2021 16:09:29 12/09/19 22 12/08/2021 pregn mare test, urine HCG negati ve Not Available In-Office Order Internal Use Only DO Not Attach Compendium DO Not Attach Compendium, Do Not Delete/merge, 12/08/2021 16:40:57 12/09/19 22 12/08/2021 urina lysis , dipst ick Leukocytes Negati ve Not Available In-Office Order Internal Use Only DO Not Attach Compendium DO Not Attach Compendium, Do Not Delete/merge, 12/08/2021 16:40:24 12/09/19 22 12/08/2021 urina lysis , dipst ick Nitrite negati ve Not Available In-Office Order Internal Use Only DO Not Attach Compendium DO Not Attach Compendium, Do Not Delete/merge, 12/08/2021 16:40:24 12/09/19 22 12/08/2021 urina lysis , dipst ick Urobilinogen .2 Not Available In-Of fice Order Internal Use Only DO Not Attach Compendium DO Not Attach Compendium, Do Not Delete/merge, [id number] 12/08/2021 16:40:24 12/09/19 22 12/08/2021 urina lysis , dipst ick Protein Negati ve Not Available In-Office Order Internal Use Only DO Not Attach Compendium DO Not Attach Compendium, Do Not Delete/merge, 12/08/2021 16:40:24 12/09/19 22 12/08/2021 urina lysis , dipst ick pH 5.5 Not Available In-Office Order Internal Use Only DO Not Attach Compendium DO Not Attach Compendium, Do Not Delete/merge, 12/08/2021 16:40:24 12/09/19 22 12/08/2021 urina lysis , dipst ick Blood Negati ve Not Available In-Office Order Internal Use Only DO Not Attach Compendium DO Not Attach Compendium, Do Not Delete/merge, [id number] 12/08/2021 16:40:24 12/09/19 22 12/08/2021 urina lysis , dipst ick Specific [place] 1.025 Not Available In-Off ice Order Internal Use Only DO Not Attach Compendium DO Not Attach Compendium, Do Not Delete/merge, [id number] 12/08/2021 16:40:24 12/09/19 22 12/08/2021 urina lysis , dipst ick Ketone Negati ve Not Available In-Office Order Internal Use Only DO Not Attach Compendium DO Not Attach Compendium, Do Not Delete/merge, 12/08/2021 16:40:24 12/09/19 22 12/08/2021 urina lysis , dipst ick Bilirubin Negati ve Not Available In-Office Order Internal Use Only DO Not Attach Compendium DO Not Attach Compendium, Do Not Delete/merge, 12/08/2021 16:40:24 12/09/19 22 12/08/2021 urina lysis , dipst ick Glucose Negati ve Not Available In-Office Order Internal Use Only DO Not Attach Compendium DO Not Attach Compendium, Do Not Delete/merge, [id number] 12/08/2021 16:40:24 Result Notes None recorded. Problems Name Problem SNOMED Code Status Onset Date Resolution Date Notes Provider Name and Address Organization Details Recorded Time Dysmenorrhea 970548870 Active 2017 Hakan robins [place] - [facility] 8 11:17:30 Irritable bowel syndrome 81982142 Active 2018 Hakan [place] - [facility] 9 18:07:48 Chronic idiopathic constipation 10757724 Active 2018 Hakan robins [place] - [facility] 9 18:08:01 Stress 82914230 Active 2018 Hakan robins [place] - [facility] 9 18:08:11 Polycystic ovary syndrome 192463807 Active 2019 Hakan [place]ins[place] - [facility] 0 18:38:57 Hypersecretion of ovarian androgens 39288384 Active 2019 Hakan robins, [place] - [facility] 0 18:39:41 Pseudomonas urinary tract infection Active 2019 MAXIMINO PHILIPPE Attn: Nav coronado,[address] [place], [address] 0 13:49:06 Problem Notes None recorded. Procedures Surgical History Date Name Laterality Status Provider Name and Address Organization Details Recorded Time 1 IUD Removal completed Hakan Midd[facility] 09/08/2020 20:50:07 9 IUD Insertion completed [facility]akan Midd[facility] 03/13/2019 13:58:20 9 LAPAROSCOPY, DIAGNOSTIC (SURG) completed Hakan Middleton [facility] - [facility] 03/13/2019 13:55:12 Imaging Results None recorded. Procedure Notes None recorded. Medical Equipment None Reported. Allergies No known drug allergies Medications Name Sig Start Date Stop Date Status Note LastModified by Organization Details LastModified Time multivitami n tablet Take 1 tablet every day by oral route. 11/20 completed Not Available Not Available Not Available amoxicillin 500 mg capsule 07/19 completed Not Available Not Available Not Available Mirena 21 mcg/24 hr (up to 8 years) 52 mg intrauterin e device Take 1 device by intrauter ine route. 09/08 completed Not Available Not Available Not Available metformin 500 mg tablet Take 1 tablet every day by oral route in the morning. 11/20 completed Not Available Not Available Not Available azithromyci n 250 mg tablet TAKE 2 TABLETS (500 MG) BY ORAL ROUTE ONCE DAILY FOR 1 DAY THEN 1 TABLET (250 MG) BY ORAL ROUTE ONCE DAILY FOR 4 DAYS 01/04 completed Not Available Not Available Not Available nystatin 100,000 unit/gram topical ointment APPLY TO THE AFFECTED AREA(S) BY TOPICAL ROUTE 2 TIMES PER DAY 11/20 completed Not Available Not Available Not Available fluconazole 150 mg tablet TAKE 1 TABLET BY MOUTH EVERY 72 HOURS FOR 9 DAYS active Not Available Not Available No t Available metronidazo le 0.75 % (37.5 mg/5 gram) vaginal gel Insert 1 applicato rful every day by vaginal route at bedtime for 5 days. 11/20 completed Not Available Not Available Not Available ceftriaxone 250 mg solution for injection Take 250 mg by injection route. 01/04 completed Not Available Not Available Not Available metronidazo le 500 mg tablet Take 1 tablet every 12 hours by oral route for 7 days. 01/04 completed Not Available Not Available Not Available sulfamethox azole 800 mg-trimetho prim 160 mg tablet 12/06 completed Not Available Not Available Not Available ketorolac 10 mg tablet Take 1 tablet every 6 hours by oral route for 5 days. 02/07 completed Not Available Not Available Not Available phenazopyri dine 100 mg tablet 04/11 completed Not Available Not Available Not Available pantoprazol e 40 mg tablet,hermes yed release active Not Available Not Available Not Available Cipro 500 mg tablet Take 1 tablet every 12 hours by oral route for 7 days. 09/08 completed Not Available Not Available Not Available polymyxin B sulfate 10,000 unit-trimet hoprim 1 mg/mL eye drops INSTILL 1 DROP IN RIGHT EYE FOUR TIMES DAILY. MAY USE EVERY 4 HOURS WHILE AWAKE 04/11 completed Not Available Not Available Not Available cabergoline 0.5 mg tablet TAKE 1/2 TABLET BY MOUTH TWICE WEEKLY FOR 1 WEEK THEN INCREASE TO 1 TABLET BY MOUTH TWICE WEEKLY FOR HYPERPROL ACTINEMIA 06/15 completed Not Available Not Available Not Available hydroxyzine HCl 25 mg tablet active Not Available Not Available Not Available letrozole 2.5 mg tablet TAKE 1 TABLET BY MOUTH ONCE DAILY 06/15 completed Not Available Not Available Not Available norethindro ne (contracept zonia) 0.35 mg tablet Take 1 tablet every day by oral route. 12/06 completed Not Available Not Available Not Available ondansetron 4 mg disintegrat ing tablet 04/11 completed Not Available Not Available Not Available sertraline 50 mg tablet Take 1 tablet every day by oral route. active Not Available Not Available No t Available dicyclomine 10 mg capsule Take 1 capsule 3 times a day by oral route. 06/15 completed Not Available Not Available Not Available naproxen 500 mg tablet TAKE 1 TABLET BY MOUTH TWICE A DAY PRN active Not Available Not Available No t Available escitalopra m 10 mg tablet Take 1 tablet every day by oral route in the morning. 04/11 completed Not Available Not Available Not Available nitrofurant oin monohydrate /macrocryst als 100 mg capsule Take 1 capsule every 12 hours by oral route as directed for 7 days. 12/08 completed Not Available Not Available Not Available calcium 600 mg (as carbonate)- vitamin D3 10 mcg (400 unit) tablet 12/06 completed Not Available Not Available Not Available Plan B One-Step 1.5 mg tablet Take 1 tablet as needed by oral route as directed. 07/19 completed Not Available Not Available Not Available calcium 600 mg (as carbonate)- vitamin D3 20 mcg (800 unit) tablet Take 1 tablet twice a day by oral route. 11/20 completed Not Available Not Available Not Available Linzess 145 mcg capsule Take 1 capsule every day by oral route. 02/07 completed Not Available Not Available Not Available Linzess 290 mcg capsule Take 1 capsule every day by oral route. 03/13 completed Not Available Not Available Not Available Xulane 150 mcg-35 mcg/24 hr transdermal patch Apply 1 patch every week by transderm al route. 02/07 completed Not Available Not Available Not Available Azo Urinary Pain Relief 95 mg tablet Take 2 tablets 3 times a day by oral route with meals. 09/08 completed Not Available Not Available Not Available Slynd 4 mg (28) tablet Take 1 tablet every day by oral route. 04/11 completed Not Available Not Available Not Available Annovera 0.15 mg-0.013 mg/24 hr vaginal ring Insert 1 vaginal ring(s) every month by vaginal route. 07/19 completed Not Available Not Available Not Available Vitals Date Recorded Body height Body mass index (BMI) [Percentile] Per age and sex Body mass index (BMI) Body weight Systolic And Diastolic Provider Name and Address Organization Details Last Updated DateTime 07/19/2021 154.94 cm 66 % 23.2 kg/m2 91280.8 6 g 114/72 mm[Hg] Madhavi Young [place] [facility] - [facility] 2 12:32:46 Date Recorded Body height Body mass index (BMI) Body mass index (BMI) [Percentile] Per age and sex Body weight Systolic And Diastolic Provider Name and Address Organization Details Last Updated DateTime 09/08/2020 154.94 cm 22.7 kg/m2 63 % 48496.0 8 g 110/76 mm[Hg] Madhavi Young [place] [facility] - [facility] 1 14:57:18 Date Recorded Body height Body mass index (BMI) Body mass index (BMI) [Percentile] Per age and sex Body weight Heart rate Oxygen saturation Oxygen saturation in Arterial blood by Pulse oximetry Body temperature Systolic And Diastolic Provider Name and Address Organization Details Last Updated DateTime 0 154.94 cm 22.1 kg/m2 59 % 91162.3 1 g 102 /min 98 % 98 % 97.9 [degF] 98/62 mm[Hg] Mallory Bennett [place] [facility] 0 15:18:31 Date Recorded Body height Body mass index (BMI) [Percentile] Per age and sex Body mass index (BMI) Body weight Systolic And Diastolic Provider Name and Address Organization Details Last Updated DateTime 12/08/2021 154.94 cm 62 % 22.9 kg/m2 86884.6 8 g 120/76 mm[Hg] Madhavi Young MA [facility] 2 16:35:26 Date Recorded Body height Body mass index (BMI) [Percentile] Per age and sex Body mass index (BMI) Body weight Systolic And Diastolic Provider Name and Address Organization Details Last Updated DateTime 04/11/2022 154.94 cm 72 % 24.2 kg/m2 80752.8 2 g 130/78 mm[Hg] Amy Bran MA [facility] 2 09:11:27 Social History Question Answer Notes LastModified by Organizat ion Details LastModified Time Tobacco Smoking Status Never Smoker Madhavi Young MA null, [facility] 09/03/2017 10:36:05 Do You Have An Advance Directive? No Information not available 09/03/2017 Is Blood Transfusion Acceptable In An Emergency? Yes Information not available 09/08/2020 What Is Your Level Of Caffeine Consumption? Occasional Information not available 09/03/2017 How Much Tobacco Do You Chew? None Information not available 09/03/2017 What Type Of Diet Are You Following? REGULAR Information not available 09/03/2017 Which Illicit Or Recreational Drugs Have You Used? None Information not available 09/03/2017 Education 12 Information no t available 09/03/2017 What Is The Highest Grade Or Level Of School You Have Completed Or The Highest Degree You Have Received? [id number] Information not available 09/08/2020 Hard Of Hearing Or Deaf In One Or Both Ears? No Information not available 09/03/2017 Legally Blind In One Or Both Eyes? No Information no t available 09/03/2017 Live Alone Or With Others? With Others Information not available 02/07/2018 Marital Status Single Informatio n not available 09/03/2017 What Was The Date Of Your Most Recent Tobacco Screening? 12/08/2021 Information not available 12/08/2021 How Many Children Do You Have? 0 Information not available 02/07/2018 Performs Monthly Self-breast Exam? No Information no t available 09/03/2017 Do You Use Protection During Sex? No Information not available 02/07/2018 What Is Your Relationship Status? Single Information not available 09/08/2020 Seat Belts Used Routinely Yes Information not available 09/03/2017 Are You Sexually Active? Yes Information not available 02/07/2018 Smoke Alarm In Home Yes Information not available 09/03/2017 Do You Have Smoke And Carbon Monoxide Detectors In Your Home? Yes Information not available 09/08/2020 Are You Passively Exposed To Smoke? No Information no t available 09/08/2020 How Much Tobacco Do You Smoke? No Information not available 09/04/2018 General Stress Level Medium [email or web address] Information not available 11/21/2019 Do You Use Sunscreen Routinely? Yes Information not available 09/03/2017 Has Tobacco Cessation Counseling Been Provided? No [email or web address] Information not available 09/04/2018 On What Date Was Tobacco Cessation Counseling Provided? 12/08/2021 Information not available 12/08/2021 How Many Years Have You Smoked Tobacco? 0 [email or web address] Information not available 09/04/2018 Sex: Unknown Functional Status Question Answer Note LastModified by Organizat ion Details LastModified Time Do you use any illicit or recreational drugs? No Information not available 09/08/2020 Do you or have you ever used any other forms of tobacco or nicotine? No Information not available 07/19/2021 What is your level of alcohol consumption? None Information not available 09/03/2017 Do you or have you ever used smokeless tobacco? Never used smokeless tobacco Information not available 07/01/2019 Are you currently employed? No Information not available 02/07/2018 What is your occupation? unemployed Information not available 02/07/2018 Do you or have you ever used e-cigarettes or vape? Never used electronic cigarettes Information not available 07/01/2019 What is your exercise level? Occasional Information not available 09/03/2017 Mental Status None recorded. Family History Relationship Description Onset Age of this Age Resolved Age Notes LastModified by Organization Details LastModified Time Maternal Grandfather Malignant neoplasm of lung 54 mental illine ss Not available 09/03/2017 10:34:31 Father Depressive disorder Not available 09/03 10:34:41 Paternal Grandmother Family history of Mathew's chorea Not available 09/03 10:35:23 Mother Depressive disorder Not available 09/03 10:35:42 Maternal Grandmother Diabetes mellitus Not available 09/03 10:35:56 Medical History Condition Response Other N High Blood Pressure N Breast Cancer N Depression Y Blood Clots N Lung Disease N Breast Problem N Anesthesia Complications N Headaches/Migraines Y Anxiety Disorder Y Muscle, Joint, or Bone Problems N Polyps N Infertility N Acid Reflux (GERD) Y Cancer N Endometriosis N High Cholesterol N Liver Disease N Thyroid Problems N Kidney or Bladder Problems N Acne N Eating Disorder N Anemia N Diabetes N Ovarian Cancer N Blood Transfusions N Seizures/Epilepsy N Abuse/Domestic Violence N Asthma N Hepatitis N Heart Disease N Pre-Eclampsia N Osteoporosis N Gynecological History Statement/Question Response Flow Heavy Date of LMP 03/14/2022 STIs/STDs N HPV Vaccine N Duration of Flow (days) 7 Age at Menarche 14 Current Control Method None Frequency of Cycle (Q days) 30 Sexually Active? Y Menses Monthly N Sexual Problems? Y LMP Approximate Desired Control Method Unknown Obstetrics History GPAL:G 0 P 0 0 0 0 Type Value Multiple Births 0 Full Term 0 Induced 0 Spontaneous 0 Premature 0 Living 0 Ectopics 0 Total 0 Immunizations Vaccine Type Date Status Note Provider Nam e and Address Organization Details Recorded Time HPV9 09/10/2017 completed Not Available [facility] 05/24/2019 02:43:41 Past Encounters Encounter ID Performer Location Encounter Start Date Encounter Closed Date Diagnosis/Indication Diagnosis SNOMED-CT Code Diagnosis ICD10 Code Diagnosis Note [id number] MD Shea Brown ([employer]) [address] [place] [address] [id number] 09/03/2017 10:15:14 09/03/2017 11:45:19 Exposure to sexually transmissible disorder 261872614 Z20.2 Family ryan nning surveillance 727979590 Z30.09 Dysmenorrhea 789118231 N 94.6 Active or passive immunization 211509034 Z23 [id number] MD Shea Brown ([employer]) [address] [place] [address] [id number] 12/06/2017 16:05:06 12/06/2017 17:46:19 Dysmenorrhea 911804829 N94.6 Family ryan nning surveillance 959162311 Z30.09 Irritable bowel syndrome characterized by constipation 636518306 K58.1 Exposure t o sexually transmissible disorder 883459805 Z20.2 [id number] MD Shea Brown ([employer]) [address] [place] [address] [id number] 0 02/07/2018 15:58:11 02/07/2018 16:50:37 Risk of exposure to communicable disease 244523781 Z20.9 Family ryan nning surveillance 173306168 Z30.09 Dysmenorrhea 907054776 N 94.6 Takes naproxen for cramps. Constipation 12414216 K5 9.00 [id number] MD Shea Brown ([employer]) [address] [place] [address] [id number] 08/22/2018 16:43:23 08/23/2018 10:21:12 Exposure to sexually transmissible disorder 120313122 Z20.2 Family ryan nning surveillance 399311495 Z30.09 Irritable bowel syndrome 16433833 K58.9 Chronic id iopathic constipation 48175494 K59.04 Stress 89092026 Z73.3 Vaginal discharge 184106 006 N89.8 Anovulator y amenorrhea 059572390 N91.1 secondary to stress vs hormonal problemmar ried wants workup done to see if problems or treatment needed Constipation 52989302 K5 9.00 [id number] MD hSea Brown ([employer]) [address] [place] [address] [id number] 0 09/04/2018 13:15:07 09/05/2018 15:30:53 Family planning surveillance 577112279 Z30.09 Anovulator y amenorrhea 890811036 N91.1 secondary to stress vs hormonal problemmar ried wants workup done to see if problems or treatment needed Dyspareunia 66809209 N94 .10 Pain in pelvis 03593554 R10.2 [id number] MD Shea Brown ([employer]) [address] [place] [address] [id number] 0 03/13/2019 12:55:27 03/14/2019 10:50:18 Insertion of intrauterine contraceptive device 28947875 Z30.430 Family ryan nning surveillance 946434850 Z30.09 Dysmenorrhea 845281615 N 94.6 Takes naproxen for cramps. Administra tion of influenza vaccine 26203146 Z23 refuses flu Active or passive immunization 104277046 Z23 refuses gardasil [id number] MAXIMINO TIPTON ([employer]) [address] [place] [address] [id number] 04/11/2019 15:54:14 04/14/2019 10:19:14 Surveillance of intrauterine device contraception done 2588155246 78138 Z30.40 Reassured pt that spotting is normal after IUD insertion and can last for 3-6 months. Venereal d isease screening 884570623 Z11.3 [id number] MAXIMINO TIPTON ([employer]) [address] [place] [address] [id number] 06/11/2019 12:13:42 06/16/2019 09:40:10 Surveillance of intrauterine device contraception done 2964690624 79936 Z30.40 Reassured pt that spotting is normal after IUD insertion and can last for 3-6 months. 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 Will start sertraline 50mg. Side effects discussed with patient. Referral to counselor and psychiatri st. RTC in 4-6 weeks. Consider titrating sertraline . [id number] MAXIMINO TIPTON ([employer]) [address] [place] [address] [id number] 06/20/2019 16:10:07 06/23/2019 09:50:27 Urgent desire to urinate 84058579 R39.15 Improving. Pt spilled urine in bathroom and only small sample remains. Able to run UA but not enough for culture. Discussed UA results with patient and advised pt to return if symptoms worsen. Increase water intake. Can continue taking cranberry and azo. Vaginitis 91560865 N76.0 [id number] MD Shea Brown ([employer]) [address] [place] [address] [id number] 0 07/01/2019 15:55:30 07/02/2019 12:52:00 Family planning surveillance 462932822 Z30.09 Hormone abnormality 8445 2003 R89.1 [id number] MAXIMINO TIPTON ([employer]) [address] [place] [address] [id number] 07/31/2019 10:47:51 08/01/2019 09:10:46 Bacterial vaginosis 526947374 N76.0 Chronic. Use mild, unscented soaps or plain water when washing, avoid any products with fragrance. Wear cotton underwear and loose fitting clothing. Wash only once per day, do not overscrub or douche. Try switching to pads instead of tampons. Will trial gel instead of oral abx. [id number] MAXIMINO TIPTON ([employer]) [address] [place] [address] [id number] 0 08/27/2019 09:48:41 08/29/2019 10:22:56 Candidal vulvovaginitis 07559595 B37.3 Erythemato us vulva associated with pruritis and clumpy discharge. Will treat for yeast. Take fluconazol e and start twice daily nystatin cream. Wear loose cotton clothing. Do not wear nylon or other fabric that holds body heat and moisture close to the skin. Try sleeping without underwear. Do not scratch. Relieve itching with a cold pack or a cool bath. Do not wash your vaginal area more than once a day. Use plain water or a mild, unscented soap. Air-dry the vaginal area. RTC if no improvemen t in symptoms. [id number] [employer]IM[employer] TIPTON ([employer]) [address] [place] [address] [id number] 0 11/06/2019 12:15:23 11/11/2019 07:48:16 Recurrent urinary tract infection 043342319 N39.0 Irritative voiding symptoms with no improvemen t after two rounds of abx. Multiple episodes of cystitis in the past year. Refer to Urology for evaluation . Candidal vulvovaginitis 35440782 B37.3 Clin c/w candidal vulvovagin itis. Will treat for yeast. Take fluconazol e. Wear loose cotton clothing. Do not wear nylon or other fabric that holds body heat and moisture close to the skin. Try sleeping without underwear. Do not scratch. Relieve itching with a cold pack or a cool bath. Air-dry the vaginal area. RTC if no improvemen t in symptoms. Bacterial vaginosis 4197 73644 N76.0 Possible recurrence after hot tub with bubble bath solution. Chronic. Use mild, unscented soaps or plain water when washing, avoid any products with fragrance. Wear cotton underwear and loose fitting clothing. Wash only once per day, do not overscrub or douche. Will use Metrogel as previously prescribed . [id number] MAXIMINO TIPTON ([employer]) [address] [place] [address] [id number] 11/21/2019 14:52:44 11/25/2019 06:25:15 Chronic pelvic pain of female 305933248 R10.2 Ex lap in 2019 which was unremarkab le. Pain worsening over the past month, f/u TVUS. R/o infection. Continue ibuprofen and warm compresses for pain. Painful ur inary bladder spasm 7192570 N32.89 Chronic irritative voiding symptoms and recurrent UTIs. Clinical suspicion for interstiti al cystitis. Patient encouraged to make f/u appointmen t with urology, referral sent at previous visit. Urine Cx sent to rule out underlying chronic urinary tract infection. Patient to take Azo as prescribed . Abx pending culture results. Venereal d isease screening 408173242 Z11.3 Consent obtained. Rule out underlying infectious process as cause of urinary symptoms and pelvic pain. [id number] MD Shea [facility] ([employer]) [address] [place] [address] [id number] 09/08/2020 14:30:29 09/14/2020 08:36:18 Removal of intrauterine device 23892867 Z30.432 Family ryan nning surveillance 922061165 Z30.09 Will be a good candidate for Slynd in the future. Mixed anxi ety and depressive disorder 828597752 F41.8 Exposure t o sexually transmissible disorder 147506901 Z20.2 Infection by Trichomonas 59554222 A59.9 Venereal d isease screening 259056623 Z11.3 [id number] [facility] ([employer]) [address] [place] [address] [id number] 0 07/19/2021 12:07:58 07/20/2021 17:03:59 Contraception care management 972099067 Z30.9 Discussed different control options with patient such as OCPs, patch, Depo Provera shot, Nexplanon, including SE and RF. Patient opting for Slynd as progestero ne-only option that should ideally avoid many of the estrogenic symptoms she was experienci ng with the Annovera ring. Counseled on use. RTC in 3 months or sooner if needed. Bacterial vaginosis 4197 26290 N76.0 Patient has history of recurrent BV infections since her IUD removal, not currently symptomati c. Responds well to Metrogel. Educated on boric acid vaginal suppositor y as prophylact ic option. Wear loose cotton clothing. Do not wear nylon or other fabric that holds body heat and moisture close to the skin. Do not wash your vaginal area more than once a day. Use plain water or a mild, unscented soap and do not douche. [id number] MAXIMINO TIPTON ([employer]) [address] [place] [address] [id number] 12/08/2021 16:22:30 12/09/2021 10:48:30 Acute vaginitis 25432271 N76.0 Pt reporting vaginal itching and swelling. PE with cottage cheese like discharge concerning for lou. Rx fluconazol e. Cultures obtained. Irritable bowel syndrome 96691151 K58.0 Pt had ex lap 2018 showing spastic colon c/w irritable bowel. She is currently having many GI issues including n/v, diarrhea, bloating, abdominal pain. She is planning to follow up with her PCP for this. Do not suspect lifter cause for her symptoms at this point. [id number] MAXIMINO TIPTON ([employer]) [address] [place] [address] 04/11/2022 08:54:27 04/18/2022 17:04:20 Anovular menstruation 03151316 N93.8 Patient reports missed period in January. 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 test negative x 2. Patient was counseled on likely anovulator y menstruati on in the context of stopping control pill 12/2021. Reassured patient. Patient denies interest in starting new contracept ion methods at this time. RTC as needed Generalize d anxiety disorder 13177078 F41.1 Patient has a history of anxiety disorder, on sertraline and hydroxyzin e. She states she has been feeling more stressed lately and would like to manage her anxiety better. Plans to follow up with PCP. Encouraged counseling . Headache 37609739 R51.9 Patient has a history of frequent headaches relieved with naproxen, requesting refill. Will renew today and advised pt follow up with PCP for future refills. Health Concerns Section Related Observation LastModified by Organization Detai ls LastModified Time None Recorded Concern Status LastModified by Organization Details LastModified Time None Recorded Advance Directives Directive N: Payers Insurance Date Sequence Insurance Name Policy Number Policy Mendez Covered Member ID Mendez Member ID Guarantor Name 07/19/2021 1 [facility] - DOS PRIOR TO 2020 (MEDICAID REPLACEMENT - HMO) Dionne Boo [id number] 07/19/2021 2 [place] [facility] [place] [facility] Dionne Boo [id number] 07/19/2021 2 [place] [facility] [place] Dionne Boo [id number] 07/01/2019 SLIDING FEE SCHEDULE - DISCOUNT 07/01/2019 1 *SELF PAY* 07/17/2022 1 [facility] - DOS ON OR AFTER 20 (MEDICAID REPLACEMENT - HMO) Dionne Arreaga [id number] 07/19/2021 1 [facility] - DOS PRIOR TO 2020 (MEDICAID REPLACEMENT - HMO) Dionne Arreaga [id number] Notes Date Note Type Note Provider Name and Address Organization Details Recorded Time 0 text/html ROS as noted in the HPI 19 yo WF presents for evaluation of urinary symptoms and pelvic pain. Patient states she started having urinary urgency, dysuria/burning x1 month prior. Patient went to [facility] on 11-03-19 and was diagnosed with a recurrent UTI at that time, and given antibiotics to treat infection. She also recently finished treatments for yeast and BV. She reports symptoms still present. Patient reports pain in lower back. Patient states urge to void bladder occurs all the time. Patient reports improvement yesterday, but then today worse again. She reports some improvement in symptoms with Azo. Patient reports pelvic pain x1 year, worsening adnexal pain over the past month. She had an ex lap several years ago which was unremarkable. Patient states mild relief with ibuprofen. Denies discharge, odor to urine or vagina, dyspareunia, diarrhea, constipation. MAXIMINO TIPTON Attn: Accounting,[address] [place], [address], [place] [facility] 11/24/2019 10:31:15 1 text/html Pelvic PainReported by PatientHPIFor location, patient reportslower abdominal. For onset/timing, patient reportsintermittent episodes lasting: (2-3 days at a time). For duration, patient reportspersistent. For quality, patient reportslike menstrual crampsandlight menstrual bleeding (spotting, irregular sinc iud insertion). For alleviating factors, patient reportsnone. For aggravating factors, patient reportsnone. For associated symptoms, patient reportsno back pain,no chills,no constipation,no diarrhea,no vaginal discharge,no pain with urination,normal emptying of bladder,no feelings of urgency,no blood in the urine,normal libido,no fever,no nausea,no vomiting,no nocturia,no sexual abuse,no ectopic pregnancies,no endometriosis,no urinary frequency,no vaginal itching or irritation, andno dyspareunia.ROS as noted in the HPI 20-year-old female presents with mother for Mirena IUD removal, initially placed on 03/13/2019. The patient reports chronic pelvic pain since IUD placement, which is similar to menstrual cramps but more intense. Hakan robins, [facility] 09/08/2020 23:19:51 2 text/html ROS as noted in the HPI 20 yo female presenting for contraception care management. Patient explains that she tried an IUD in the past and did not tolerate it well due to recurrent UTIs and bacterial vaginosis infections. Since getting the IUD removed in 2020, she has tried the annovera ring, which she did not tolerate either. Patient explains that she had severe nausea with vomiting upon starting the ring. She then tried discontinuing and starting the ring again and still had the same n/v. Also reports history of using the transdermal patch, which did not work well for her as it caused too much skin irritation. She is now seeking contraception options that do not cause her adverse effects while ideally decreasing or eliminating her menstrual cycles. Patient also reports history of recurrent bacterial vaginosis infections since the removal of her IUD. These typically occur following her menstrual cycle and last ~2-3 days. She self treats with Metrogel with good resolution. Primary symptoms include brown/yellow discharge with distinct odor. She is wondering if there is anything she can do to prevent these from happening each month. Patient denies personal history of DVT/PE, HTN, cardiovascular disease, stroke, migraines, seizures, or tobacco use. Further denies pelvic pain, abnormal discharge, vaginal symptoms, n/v/f, SOB, or chest pain. MAXIMINO TIPTON Attn: Accounting,[address] [facility], [place], [address], [facility] 07/20/2021 10:33:48 2 text/html ROS as noted in the HPI 21yo G0 F with chronic pelvic pain, anxiety, depression, recurrent BV presenting for multiple concerns. First she states she thought she was having a recurrent bacterial infection so she used metrogel x 1 week ago without relief of symptoms. She reports pruritis and 2 episodes of vulvar swelling with dyspareunia. She has new partner. Denies lesions, abnormal bleeding, discharge, urinary symptoms, fevers, chills. She also reports abdominal pain, acid reflux, bloating, n/v, diarrhea x months. She stopped her OCPs (slynd) as she thought they could be contributing to symptoms but did not notice improvement. She has tried an antacid with temporary relief. She also tried diet modifications with limiting dairy and gluten. She plans to follow up with her PCP but wanted to make sure that her PCOS couldn't be contributing to her symptoms. Of note, she had ex lap [place] [address] Middleton for chronic pain. There was no evidence of endometriosis. He did note spastic colon c/w irritable bowel. MAXIMINO TIPTON Attn: Accounting,[address] [place], [address], [facility] 12/08/2021 17:12:06 2 text/html ROS as noted in the HPI 21yo G0 F with chronic pelvic pain, anxiety, depression, recurrent BV presenting for multiple concerns. Patient states she has a knot on her vulva starting one week ago. She states the bump is on the right side of her groin/labia and started out painful however the pain has resolved. She denies any drainage or redness at the site. Patient also reports irregular menstrual bleeding. She states her last sexual encounter was in December 2021 which is around the time she stopped her BC pill. She states she skipped her period in January. In February she had a very heavy period for 5-7 days in which she passed one clot larger than 1 inch and several clots smaller than 1 inch. She also reports associated heavy abdominal cramping at that time which resolved during menses. Patient went to the ER at [facility] to be evaluated. They discharged her home without any workup. 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 Since February patient states she has not been feeling well reporting intermittent headaches, nausea, vomiting. She took 2 tests last week which were both negative. Patient denies any abnormal bleeding at this time as well as discharge, dysuria, fevers, chills. Patient is concerned she had a miscarriage back in February. She is requesting a medication refill for her headaches. She denies COVID and influenza vaccinations today. MAXIMINO TIPTON Attn: Accounting,[address] [place], [address], [facility] 04/18/2022 16:36:55 OBGyn Episode No OBEpisode recorded.
--- OUTSIDE RECORDS SUMMARY | 2024-11-28 04:26 | XMS_ITS | Clinical Summary ---
Author Organization [facility] Address [address] [place] [id number] Care Team Providers Care Tank Insulator Rubber Name Role Phone Unavailable Primary Care Provider Unavailabl e Social History Tobacco Use Types Packs/Day Years Used Date Smoking Tobacco: Never Assessed Comments Unknown Sex and Gender Information Value Date Recorded Sex Assigned at Not on file Legal Sex Female 9:40 PM CDT Gender Identity Not on file Sexual Orientation Not on file Last Filed Vital Signs Vital Sign Reading Time Taken Comments Blood Pressure 98/64 06/15/2016 10:03 AM PAPER PRODUCTS SUPERVISOR Pulse 96 06/15/2016 10:03 AM PAPER PRODUCTS SUPERVISOR Temperature - - Respiratory Rate - - Oxygen Saturation - - Inhaled Oxygen Concentration - - Weight 46.9 kg (103 lb 6.4 oz) 06/15/2016 10:03 AM PAPER PRODUCTS SUPERVISOR Height 156.2 cm (5' 1.5) 06/15/2016 10:03 AM CS T Body Mass Index 19.22 06/15/2016 10:03 AM PAPER PRODUCTS SUPERVISOR Plan of Treatment Health Maintenance Due Date Last Done Comments Cervical Cancer Screening Pa p Smear (Age 21 to 29) Every 3 Years 2001 Cervical Cancer Screening 2001 Annual Physical 2004 HPV Vaccines (1 - 3-dose series) 2016 Meningococcal B Vaccine (1 o f 2 - Standard) 2017 Hepatitis C 07/24/2019 DTaP, Tdap and Td Vaccines ( 1 - Tdap) 2020 Hepatitis B Vaccines (1 of 3 - 19+ 3-dose series) 2020 COVID-19 Vaccine ( - 2023-2 5 season) 2024 Meningococcal Vaccine Aged Out No radha mario eligible based on patient's age to complete this topic Pneumococcal Vaccine: Pediat rics (0 to 5 Years) and At-Risk Patients (6 to 49 Years) Aged Out No longer eligible b ased on patient's age to complete this topic RSV Immunizations Under 20 Months Aged Out No longer eligible based on patient's age to complete this topic
--- OUTSIDE RECORDS SUMMARY | 2024-11-28 05:02 | XMS_ITS | Clinical Summary ---
Author Organization [facility] Address [address] [place] [id number] Care Team Providers Care General House Worker Name Role Phone Unavailable Primary Care Provider [...] Comments Blood Pressure 98/64 06/15/2016 10:03 AM CENTRAL OFFICE FRAME WIRER Pulse 96 06/15/2016 10:03 AM CENTRAL OFFICE FRAME WIRER Temperature - - Respiratory Rate - - Oxygen Saturation - - Inhaled Oxygen Concentration - - Weight 46.9 kg (103 lb 6.4 oz) 06/15/2016 10:03 AM CENTRAL OFFICE FRAME WIRER Height 156.2 cm (5' 1.5) 06/15/2016 10:03 AM CS T Body Mass Index 19.22 06/15/2016 10:03 AM CENTRAL OFFICE FRAME WIRER Plan of Treatment Health Maintenance Due Date [...]
--- OUTSIDE RECORDS SUMMARY | 2024-11-28 05:02 | XMS_ITS | Clinical Summary ---
Author Organization [facility] Address [address] [facility] [place] [address] Care Team Providers Care Riprap Placer Name Role Phone Deepak Jarquin MD Primary Care Provider Source Comments [facility],non-owned Affiliates and Associated Physician Practices is amultiple site organization consisting of ambulatory clinics and hospital sitesin [place], [place], [place] and [place]. This disclosure is being madepursuant to the Care Everywhere program and may not contain all information available regarding this patient. Last updated 18.[facility] [employer] Allergies No known active allergies Medications * [...] on file Legal Sex Female 6:36 AM SUPERVISOR GROWER Gender Identity Not on file Sexual Orientation [...] Probe Negative Negative 11/02/2019 11:13 AM CDT [facility] GC Amplified Probe Negative Negative 11/02/2019 11:13 AM CDT [facility] Microbiology URINE / Unknown Collection / Unknown 11/01/2019 8:54 PM CDT 11/01/2019 9:08 PM CDT Narrative [facility] - 11/02/2019 11:13 AM CDT Results based on detection/no detection of ribosomal RNA by amplified method. Rafael Cummings MD LAB - MICROBIOLOGY ORDERABLES Fi nal Result [facility] [address] [place] [address], [facility] [phone] from Last 3 Months or Most Recently Relevant to Health Maintenance Insurance [facility] Care Teams Riprap Placer Relationship Specialty [place] [address] [place] [phone] PCP - General Internal Medicine 05/07/21
[2024-11-28 05:04] LABS: BEDSIDEPREGUCG Negative (Negative)
--- NOTE | 2024-11-28 05:10 | ED_ITS ---
HPI - Fever General Chief Complaint: Fever Stated Complaint: Vomiting/fever Time Seen by Provider: 11/28/24 04:37 Source: patient and other Mode of arrival: ambulatory Limitations: no limitations History of Present Illness HPI Narrative: 24-year-old female presents with nausea vomiting that started yesterday. She also has a sore throat. She has been febrile to 104? F by report. She has white patches in the back of her throat. She denies any dysuria, urgency, frequency, or hematuria. No flank pain. No cough. She still has her tonsils. She denies any dysphonia. She is also having right ear pain. Related Data Home Medications ?Medication ?Instructions ?Recorded ?Confirmed ?Last Taken ?Type mirtazapine 15 mg tablet 15 mg PO HS 01/24/24 02/18/24 Unknown History prenat.vits,tyrell,[id number] 1 tablet PO DAILY 01/24/24 02/18/24 Unknown History Allergies Allergy/AdvReac Type Severity Reaction Status Date / Time metoclopramide AdvReac Anxiety Verified 11/28/24 04:23 [facility] Social History Social History Smoking status: Never smoker Do You Feel Safe in your Home?: Yes Lack of Transportation: No Lack of Food: Never True Current Housing: I Have Housing Concerned About Future Housing: No Difficulty Paying Gas/Electric Bills: No Difficulty Paying for Meds: No Currently Unemployed: No Education: High School Diploma/GED Difficulty w/ Childcare or Family Care: No Spiritual care concerns: No Exam 2 Narrative: GENERAL: Well-appearing, well-nourished, and in no acute distress. HEAD: Normocephalic, atraumatic. EYES: Non injected, non icteric ENT: Nares clear, no rhinorrhea or epistaxis. Gross auditory acuity intact. Bilateral tonsillar hypertrophy with exudate although not kissing. Uvula midline. Right ear without effusion, bulging, erythema. No trismus. No dysphonia. NECK: Supple. No meningismus. Lymphadenopathy. CHEST: Speaking in full sentences. No respiratory distress. HEART: Tachycardic rate and rhythm. . ABDOMEN: Soft, nondistended. No rigidity or guarding. Not peritoneal EXTREMITIES: Normal range of motion. No lower extremity edema. SKIN: Warm, dry, no rash. NEURO: No focal deficits. Alert and oriented. Answering questions. Following commands. Normal speech without aphasia or dysarthria. PSYCH: Normal mood and affect. Course Vital Signs Vital signs: Vital Signs Blood Pressure 135/80 11/28/24 04:47 Temperature 99.5 F 11/28/24 05:02 Pulse Rate 124 H 11/28/24 07:15 Respiratory Rate 19 11/28/24 07:15 Blood Pressure 116/71 11/28/24 07:01 Pulse Oximetry 99 11/28/24 07:15 MDM - Fever MDM Narrative Medical decision making narrative: Patient presents with a sore throat as well as nausea and vomiting and fever. Emergency department she is afebrile with vital signs notable for tachycardia. Centor Score - estimates probability that pharyngitis is streptococcal and suggests mgmt Age (3-14 years = +1, 15-44 years = 0, >45 years = -1): 0 Exudate or tonsillar swelling (No 0, Yes +1): 1 Anterior cervical lymphadenopathy (No 0, Yes +1): 1 Temp > 38C (No 0, Yes +1): 0-1 (per patient report) Cough (present 0 , absent +1):0 Total 2-3 points Will obtain strep testing additional viral testing. Patient is given 1 L IV fluid for tachycardia and Zofran for nausea. They are given a one-time dose of 10mg dexamethasone as this has been shown to decrease the time to pain relief; patient requetsing this be IV. Patient has a leukocytosis. test negative. Strep test negative. Normal renal function. Patient is reassessed at bedside. She has received 500 cc of her fluids. She states she feels chilled at this time. She denies giving or receiving oral sex thus will defer further pursuit of GC/Chlam as etiology. Greenwood test negative. She states a friend and family member both had similar symptoms and were diagnosed with having a virus. Patient does have an abnormal urinalysis however she denies all symptoms and for this reason will defer antibiotics; urine has reflexed to culture. She is given lozenge and Magic mouthwash. She is also given a 2 L of IV fluids. There is an improvement in HR, between 114-116 as 2nd liter is infusing. Otherwise stable for discharge. She is provided prescriptions for [id number] analgesic and antipyretic medications, ondansetron, and Cepacol and Chloraseptic for symptoms. Differential Diagnosis Differential diagnosis: Likely fever of unknown origin, gastroenteritis, pyelonephritis (UTI), viral infection, influenza and other (Strep pharyngitis, viral pharyngitis, acute viral syndrome; retropharyngeal abscess; peritonsillar abscess) Lab Data Attestation: I reviewed the patient's lab results. 11/28/24 05:15 11/28/24 05:15 Labs: Lab Results 11/28/24 11/28/24 11/28/24 Range/Units 04:41 04:57 05:14 WBC (4.5-10.0) K/mm3 RBC (4.2-5.4) M/mm3 Hgb (12.0-15.0) g/dL Hct (37.0-47.0) % MCV (80-100) fl MCH (26-34) pg MCHC (32-36) g/dl RDW (11.5-14.5) % Plt Count (150-375) k/mm3 MPV (7.4-10.4) fl Immature Gran % (Auto) (0-0.5) % Neut % (Auto) (45.5-73.1) % Lymph % (Auto) (18.3-44.2) % Greenwood % (Auto) (2.6-8.5) % Eos % (Auto) (0-4.4) % Baso % (Auto) (0.2-1.2) % Lymph # (Auto) (0.9-3.2) K/mm3 Greenwood # (Auto) (0.1-0.6) K/mm3 Eos # (Auto) (0-0.3) K/mm3 Baso # (Auto) (0.0-0.1) K/mm3 Abs Immat Gran (auto) (0.00-0.031) K/mm3 Absolute Neuts (auto) (1.3-6.7) K/mm3 Absolute Nucleated RBC (0.0-0.012) K/mm3 Nucleated RBC % (0.0-0.2) % Sodium (137-145) mmol/L Potassium (3.4-5.0) mmol/L Chloride (98-107) mmol/L Carbon Dioxide (22-30) mmol/L Anion Gap (4-12) mmol/L BUN (7-17) mg/dL Creatinine (0.7-1.0) mg/dL Estim Creat Clear Calc Estimated GFR (59 - ) Glucose (65-110) mg/dL Calcium (8.4-10.2) mg/dL Urine Color Dark yellow (Yellow) Urine Appearance Cloudy H (Clear) Urine pH 5.5 (5.0-9.0) Ur Specific Bunkie 1.044 H (1.001-1.035) Urine Protein 2+ H (Negative) mg/dL Urine Glucose (UA) Negative (Negative) mg/dL Urine Ketones 2+ H (Negative) mg/dL Ur Blood (Man) 2+ H (Negative) Urine Nitrate Negative (Negative) Urine Bilirubin Negative (Negative) Urine Urobilinogen 1.0 (<2.0) mg/dL Add Ur Microanalysis Reviewed Leukocyte Esterase Rfl Negative (Negative) MARKY/UL Urine RBC 11-20 H (0-2) /hpf Urine WBC 11-20 H (0-3) /hpf Ur Squamous Epith Cells Few (Few) /hpf Urine Bacteria 3+ H /hpf Urine Casts 11-20 Urine Mucus Present /lpf POC Urine HCG, Qual Negative (Negative) Monoscreen Negative (Negative) Influenza A (RT-PCR) (Negative) Influenza B (RT-PCR) (Negative) RSV (RT-PCR) (Negative) SARS-CoV-2 RNA (RT-PCR) (Negative) Group A Strep (PCR) (Negative) 11/28/24 11/28/24 Range/Units 05:15 05:20 WBC 18.5 H (4.5-10.0) K/mm3 RBC 5.20 (4.2-5.4) M/mm3 Hgb 13.1 (12.0-15.0) g/dL Hct 40.0 (37.0-47.0) % MCV 76.9 L (80-100) fl MCH 25.2 L (26-34) pg MCHC 32.8 (32-36) g/dl RDW 14.1 (11.5-14.5) % Plt Count 230 (150-375) k/mm3 MPV 9.9 (7.4-10.4) fl Immature Gran % (Auto) 0.5 (0-0.5) % Neut % (Auto) 86.9 H (45.5-73.1) % Lymph % (Auto) 4.4 L (18.3-44.2) % Greenwood % (Auto) 8.1 (2.6-8.5) % Eos % (Auto) 0.0 (0-4.4) % Baso % (Auto) 0.1 L (0.2-1.2) % Lymph # (Auto) 0.82 L (0.9-3.2) K/mm3 Greenwood # (Auto) 1.5 H (0.1-0.6) K/mm3 Eos # (Auto) 0.0 (0-0.3) K/mm3 Baso # (Auto) 0.0 (0.0-0.1) K/mm3 Abs Immat Gran (auto) 0.09 H (0.00-0.031) K/mm3 Absolute Neuts (auto) 16.0 H (1.3-6.7) K/mm3 Absolute Nucleated RBC 0.000 (0.0-0.012) K/mm3 Nucleated RBC % 0.0 (0.0-0.2) % Sodium 135 L (137-145) mmol/L Potassium 3.6 (3.4-5.0) mmol/L Chloride 105 (98-107) mmol/L Carbon Dioxide 17 L (22-30) mmol/L Anion Gap 13 H (4-12) mmol/L BUN 9 (7-17) mg/dL Creatinine 0.78 (0.7-1.0) mg/dL Estim Creat Clear Calc Not Reportable Estimated GFR > 60 (59 - ) Glucose 116 H (65-110) mg/dL Calcium 9.3 (8.4-10.2) mg/dL Urine Color (Yellow) Urine Appearance (Clear) Urine pH (5.0-9.0) Ur Specific Bunkie (1.001-1.035) Urine Protein (Negative) mg/dL Urine Glucose (UA) (Negative) mg/dL Urine Ketones (Negative) mg/dL Ur Blood (Man) (Negative) Urine Nitrate (Negative) Urine Bilirubin (Negative) Urine Urobilinogen (<2.0) mg/dL Add Ur Microanalysis Leukocyte Esterase Rfl (Negative) MARKY/UL Urine RBC (0-2) /hpf Urine WBC (0-3) /hpf Ur Squamous Epith Cells (Few) /hpf Urine Bacteria /hpf Urine Casts Urine Mucus /lpf POC Urine HCG, Qual (Negative) Monoscreen (Negative) Influenza A (RT-PCR) Negative (Negative) Influenza B (RT-PCR) Negative (Negative) RSV (RT-PCR) Negative (Negative) SARS-CoV-2 RNA (RT-PCR) Negative (Negative) Group A Strep (PCR) Not detected (Negative) Discharge Plan Discharge Clinical Impression: Otalgia of right ear, Abnormal urinalysis, Leukocytosis, Pharyngitis Patient Disposition: Home Condition: Stable Instructions: Antibiotic Form, Pharyngitis (ED), Leukocytosis (ED), Earache (ED) Additional Instructions: Your symptoms are likely viral although you tested negative for COVID influenza a influenza B and RSV. You also tested negative for Strep. Rest and maintain your hydration. Use the lozenges as well as saltwater gargle/rinses. Follow-up with primary care physician. If you do not have 1 the name of a doctor is listed below. Return to the emergency department any new or worsening symptoms. Acetaminophen/Tylenol (maximum 4000 mg per day) is safe to take with NSAIDs (ibuprofen/Motrin) for pain relief. If you continue to have nausea vomiting the oral disintegrating tablets of Zofran can help. Patient Language: Maldivian Prescriptions: New Chloraseptic Max Sore Throat 1.5-33 % spray,non-aerosol 1 spray mucous membrane 4-6XD PRN (Reason: sore throat) Qty: 118 0RF Rx Instructions: leave on area for 15 seconds then spit out; use at least 2 hours between doses Cepacol Sore Throat (claude-men) 15-2.6 mg lozenge 1 starr mucous membrane Q2-4H PRN (Reason: sore throat) Qty: 16 0RF ondansetron 4 mg tablet,disintegrating 4 mg PO Q8H PRN (Reason: nausea and vomiting) Qty: 7 0RF ibuprofen 600 mg tablet 600 mg PO TID PRN (Reason: pain) Qty: 30 0RF acetaminophen 500 mg capsule 1,000 mg PO Q6H PRN (Reason: pain) Qty: 30 0RF No Action mirtazapine 15 mg Tablet 15 mg PO HS prenat.vits,tyrell,[id number] Tablet 1 tablet PO DAILY Follow-up/Referrals: PHYSICIAN,PHARMACY DIRECTOR [Primary Care Provider] - Martinez Nunez MD [Physician] - Stand Alone Forms: Work/School Release IP Time of Disposition: 07:39
[2024-11-28] MEDS: ONDANSETRON INJ 4 MG/2 ML VIAL IV PUSH (05:13)
[2024-11-28 05:20] LABS: Add Urine Microscopic? YES; Appearance Urine Cloudy (Clear); Glucose Urine UA Negative (Negative); Leukocyte Esterase Ur Negative LEU/UL (Negative); Need Manual Microscopic Reviewed; Nitrate Urine Negative (Negative); Specific Grav Ur 1.044 (1.001-1.035)
[2024-11-28 05:26] LABS: Hematocrit 40.0 % (37.0-47.0); Hemoglobin 13.1 g/dL (12.0-15.0); Immature Granulocyte Percent A 0.5 % (0-0.5); Lymphocytes Absolute Auto 0.82 K/mm3 (0.9-3.2); Mean Corpuscular HGB Conc 32.8 g/dl (32-36); Mean Corpuscular Hemoglobin 25.2 pg (26-34); Mean Corpuscular Volume 76.9 fl (80-100); Nucleated Red Blood Cells Absolute Auto 0.000 K/mm3 (0.0-0.012); Nucleated Red Blood Cells Perc 0.0 % (0.0-0.2); Platelet Count Result 230 k/mm3 (150-375); Red Blood Count 5.20 M/mm3 (4.2-5.4); White Blood Count 18.5 K/mm3 (4.5-10.0)
[2024-11-28] MEDS: SODIUM CHLORIDE 0.9% IV 1,000 ML 999 ML IV CONT ×2 (05:32→06:58)
[2024-11-28] MEDS: dexAMETHasone SOD PHOS INJ 10 MG/ML 1 ML VIAL IV PUSH (05:59)
[2024-11-28 06:05] LABS: Strep Group A RT-PCR NOT DETECTED (Negative)
[2024-11-28 06:12] LABS: Anion Gap 13 mmol/L (4-12); Blood Urea Nitrogen 9 mg/dL (7-17); Calcium 9.3 mg/dL (8.4-10.2); Carbon Dioxide 17 mmol/L (22-30); Chloride 105 mmol/L (98-107); Estimated Glomerular Filt Rate > 60; Glucose 116 mg/dL (65-110); Potassium 3.6 mmol/L (3.4-5.0); Sodium 135 mmol/L (137-145)
[2024-11-28 06:17] LABS: Influenza A QL RT-PCR Negative (Negative); Influenza B QL RT-PCR Negative (Negative); RSV RNA, RT-PCR Negative (Negative); SARS-CoV-2 RNA PCR Negative (Negative)
[2024-11-28 06:38] LABS: Negative Monotest Control Negative (Negative); Positive Monotest Control Positive (Positive)
[2024-11-28] MEDS: BENZOCAINE/MENTHOL (*BKC) 18 EA LOZENGE 1 LOZENGE PO (07:00)
[2024-11-28] MEDS: LIDOCAINE 2% VISC SOLN 30 ML, ALUMINUM/MAGNESIUM/SIMETH SUSP 30 ML, diphenhydrAMINE HCl... PO (07:00)
--- NOTE | 2024-11-28 07:18 | PC.NURSE ---
Bedside shift report received from Tara CORTES. No questions or concerns from patient or family.
[2024-11-28] MEDS: KETOROLAC 15 MG/ML VIAL (*BKC) IV PUSH (07:24)
[2024-11-28] MEDS: MORPHINE SULFATE (*CRX) 2 MG/ML INJ IV PUSH (07:25)
== END 2024-11-28 08:30 | disposition home or self-care (01) ==
PROVIDERS: Emergency Provider Student in an Organized Health Care Education/Training Program
DX: J02.9 Acute pharyngitis, unspecified (principal); H92.01 Otalgia, right ear; D72.829 Elevated white blood cell count, unspecified; R82.998 Other abnormal findings in urine; Z20.822 Contact with and (suspected) exposure to COVID-19
CPT/HCPCS: 36415; 80048; 81001; 81025; 85025; 86308; 87086; 87637; 87651; 96361; 96374; 96375; 99284; A9270; J1100; J1885; J2270; J2405; J7030

== ENCOUNTER 2024-12-06 09:39 | Emergency (ER) | payer OTHER, SELFPAY ==
[2024-12-06 09:55] VITALS: BP 119/85; PULSE 115; RESP 18; TEMP 36.9; O2SAT 100
[2024-12-06 10:05] LABS: EDSTREPNEGPOS1 Negative (Negative)
--- NOTE | 2024-12-06 10:22 | ED.URI ---
HPI - URI/Sore Throat General Chief Complaint: Upper Respiratory Infection Stated Complaint: Strep Symptoms Time Seen by Provider: 12/06/24 10:05 Source: patient and RN notes reviewed Mode of arrival: ambulatory Limitations: no limitations History of Present Illness HPI Narrative: Patient presents today with an approximate 1 week history of sore throat. She was initially seen in the ER at [facility] 11/28/2024, where she had a full workup including rapid strep, mononucleosis, influenza, COVID, RSV, and blood work. She also had fluids and medications. Point of care testing was negative. Patient felt strongly that she had strep throat and had leftover antibiotics at home. She took amoxicillin twice daily for 7 days, which she stopped 2 days ago. States that after stopping the antibiotics her symptoms started again and she wanted to come in for re-evaluation. Denies any current fever, shortness of breath, difficulty swallowing. Related Data Home Medications ?Medication ?Instructions ?Recorded ?Confirmed ?Last Taken ?Type mirtazapine 15 mg tablet 15 mg PO HS 01/24/24 02/18/24 Unknown History Allergies Allergy/AdvReac Type Severity Reaction Status Date / Time metoclopramide AdvReac Anxiety Verified 12/06/24 09:55 PMFSH Social History Social History Smoking status: Never smoker Do You Feel Safe in your Home?: Yes Lack of Transportation: No Lack of Food: Never True Current Housing: I Have Housing Concerned About Future Housing: No Difficulty Paying Gas/Electric Bills: No Difficulty Paying for Meds: No Currently Unemployed: No Education: High School Diploma/GED Difficulty w/ Childcare or Family Care: No Spiritual care concerns: No Comments At time of signature, I have reviewed and agree with nursing past medical, surgical, social and family history unless otherwise noted. Please see nursing chart for further information. There is no relevant family history pertinent to the presenting complaint Exam Narrative: GENERAL: Well-appearing, well-nourished, and in no acute distress. HEAD: Normocephalic, atraumatic. EYES: EOMI. No redness or drainage. Conjunctivae normal. ENT: Mucous membranes pink and moist. Nares clear. No rhinorrhea. TMs normal bilaterally. Throat erythematous. Tonsils 2+ with small amount of white exudate. Uvula midline. NECK: Normal AROM. Supple. No lymphadenopathy. CHEST: No respiratory distress. Clear to auscultation. HEART: Regular rate and rhythm. No murmur appreciated. EXTREMITIES: Normal range of motion. No edema. SKIN: Warm, dry, no rash. Capillary refill normal. Normal skin turgor. NEURO: No focal deficits. Alert and oriented x3. Gait steady. PSYCH: Normal affect. No signs of depression or anxiety. Course Course Level of Care: Express Care Visit Vital Signs Vital signs: Vital Signs Temperature 98.5 F 12/06/24 09:55 Pulse Rate 115 H 12/06/24 09:55 Respiratory Rate 18 12/06/24 09:55 Blood Pressure 119/85 12/06/24 09:55 Pulse Oximetry 100 12/06/24 09:55 Temperature 98.5 F 12/06/24 09:55 Pulse Rate 115 H 12/06/24 09:55 Respiratory Rate 18 12/06/24 09:55 Blood Pressure 119/85 12/06/24 09:55 Pulse Oximetry 100 12/06/24 09:55 Reviewed. Rechecked pulse 90 upon auscultation. MDM - URI/Sore Throat MDM Narrative Medical decision making narrative: 24-year-old female patient presents today complaining of 1+ week history of sore throat. She was initially seen the day after symptoms began in the ER at [facility] where all labs were negative. Patient decided to take leftover amoxicillin at home for close to a week but stopped 2 days ago. Rapid strep here today is negative with culture pending. Symptoms still likely viral. Recommend continuing OTC medications while culture is pending. She declines a dose of dexamethasone for her discomfort today. Vital signs stable. Anticipatory guidance given. Differential Diagnosis Differential diagnosis: Likely upper respiratory infection, viral infection, pharyngitis and other (Strep throat) Lab Data Attestation: I reviewed the patient's lab results. Labs: Lab Results 12/06/24 Range/Units 10:03 POC Grp A Strep Screen Negative (Negative) Critical Care Time Critical Care Time Critical Care Time: No Discharge Plan Discharge Clinical Impression: Pharyngitis Qualifiers: Pharyngitis/tonsillitis etiology: unspecified etiology Qualified Code(s): J02.9 - Acute pharyngitis, unspecified Patient Disposition: Home Condition: Stable Instructions: Pharyngitis (ED), Oral Herpes Infection (ED) Additional Instructions: Your rapid strep swab was negative today at [facility]. You will be notified in a few days if the culture comes back positive for strep, and appropriate antibiotics will be called in for you at that time. Your symptoms are likely due to a viral illness, which is not treated with antibiotics. Viral symptoms can be present for up to 7-10 days. Take Tylenol or ibuprofen for fever or pain. Rest and stay hydrated. Follow up with your PCP in 5-7 days if symptoms are not improving. Go to the ER immediately if you have any difficulty breathing or swallowing. Patient Language: [place] Prescriptions: No Action mirtazapine 15 mg Tablet 15 mg PO HS Chloraseptic Max Sore Throat 1.5-33 % spray,non-aerosol 1 spray mucous membrane 4-6XD PRN (Reason: sore throat) Qty: 118 0RF Rx Instructions: leave on area for 15 seconds then spit out; use at least 2 hours between doses ondansetron 4 mg tablet,disintegrating 4 mg PO Q8H PRN (Reason: nausea and vomiting) Qty: 7 0RF ibuprofen 600 mg tablet 600 mg PO TID PRN (Reason: pain) Qty: 30 0RF Follow-up/Referrals: PHYSICIAN,CARDIAC MONITOR TECHNICIAN [Primary Care Provider] - Time of Disposition: 10:23
[2024-12-06 10:26] VITALS: PULSE 90
== END 2024-12-06 10:26 | disposition home or self-care (01) ==
PROVIDERS: Emergency Provider Nurse Practitioner
DX: J02.9 Acute pharyngitis, unspecified (principal)
CPT/HCPCS: 87081; 87880; 99213; G0463